=== PATIENT | male | born 1935 | race Caucasian/White ===

== ENCOUNTER 2025-02-06 09:32 | Outpatient (AMB) | payer MEDICARE, MEDICAID, SELFPAY ==
--- OUTSIDE RECORDS SUMMARY | 2025-02-03 10:20 | XMS_ITS | Encounter Summary ---
Author Organization [facility] Address [address] [address] Phone Care Team Providers Care Clinical Allergist Name Role Phone Milagros Valencia MD Primary Care Provider [phone] Reason for Visit * Reason Comments Chronic Kidney Disease Encounter Details Date Type Department Care Team (Latest Contact Info) Description 02/03/2025 10:20 AM EDT Office Visit [facility] [address] [address] Chance Saldana MD [address] [address] Stage 3b chronic kidney disease (HCC) (Primary Dx); Congestive heart failure, not otherwise specified (HCC); Atrial fibrillation, not otherwise specified (HCC); Anemia in chronic kidney disease; Diabetes mellitus, not otherwise specified (HCC); Simple renal cyst; Renal stone; Localized edema; Hypertension; Emphysema, not otherwise specified (HCC); Dyslipidemia; Congenital lobulation of kidney; Benign prostatic hyperplasia; 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 Social History Tobacco Use Types Packs/Day Years Used Date Smoking Tobacco: Former Cigarettes 0 04/17/1999 - 04/17/2008 Smokeless Tobacco: Never Alcohol Use Standard Drinks/Week Comments Never 0 (1 standard drink = 0.6 oz pur e alcohol) Sex and Gender Information Value Date Recorded Sex Assigned at Not on file Legal Sex Male 5:10 PM EST Gender Identity Not on file Sexual Orientation Not on file documented as of this encounter Last Filed Vital Signs Vital Sign Reading Time Taken Comments Blood Pressure 120/60 02/03/2025 10:25 AM EDT Pulse 92 02/03/2025 10:25 AM EDT Temperature - - Respiratory Rate - - Oxygen Saturation 95% 02/03/2025 10:25 AM EDT Inhaled Oxygen Concentration - - Weight 84.8 kg (187 lb) 02/03/2025 10:25 AM EDT Height - - Body Mass Index 27.62 04/18/2023 10:00 AM EST documented in this encounter Progress Notes * Chance Saldana MD - 02/03/2025 10:20 AM EDT [facility] Office Visit Patient Name: Rom Cote, Male Date of : 1935, 89 y.o. Date: 02/03/2025 History of Present Illness Rom Cote is a 89 y.o. male who is here for follow up of multiple medical problems including ckd, proteinuria and kidney stones. Interim history since the last encounter was reviewed. No acute complaints were voiced. Denied chest pain, flank pain, hematuria, hemoptysis or fevers. All other systems were reviewed and negative. Available lab results were reviewed and discussed. Medication list was reviewed and discussed. Any available out of office blood pressure readings were reviewed and discussed. CV and Renal risk was assessed and discussed. The following portions of the patient's chart were reviewed in this encounter and updated as appropriate: Allergies Meds Past Medical History Past Medical History: Diagnosis Date Chronic kidney disease stage 2 Chronic obstructive pulmonary disease (HCC) Diabetes mellitus (HCC) Enlarged prostate BPH Essential hypertension with WCE Nephrolithiasis Past Surgical History Past Surgical History: Procedure Laterality Date OTHER SURGICAL HISTORY Rectal fissure repair 2010 Family History Family History Problem Relation Age of Onset Cancer Sibling Cancer Mother Social History Social History Tobacco Use Smoking status: Former Current packs/day: 0.00 Types: Cigarettes Start date: 04/17/1999 Quit date: 04/17/2008 Years since quittin.8 Smokeless tobacco: Never Substance Use Topics Alcohol use: Never Medication List Current Outpatient Medications Medication Sig Dispense Refill albuterol (2.5 MG/3ML) 0.083% nebulizer solution USE 3 ML NEB EVERY 6 HOURS NEEDED FOR WHEEZING apixaban (ELIQUIS) 2.5 MG tablet Take 2.5 mg by mouth atorvastatin (LIPITOR) 10 MG tablet budesonide-formoterol (SYMBICORT) 160-4.5 MCG/ACT inhaler Inhale carvedilol (COREG) 12.5 MG tablet Take 6.25 mg by mouth in the morning and 6.25 mg in the evening. Take with meals. cyanocobalamin (VITAMIN B-12) 1000 MCG tablet Take 1,000 mcg by mouth 1 (one) time each day (Patient taking differently: Take 500 mcg by mouth 1 (one) time each day) diazePAM (VALIUM) 5 MG tablet TAKE 1/2 TAB BY MOUTH 3 TIMES A DAY NEEDED FOR ANXIETY Entresto 24-26 MG per tablet Take 1 tablet by mouth erythromycin (ROMYCIN) ophthalmic ointment APPLY 1/4 INCH RIBBON TO EACH EYE AT BEDTIME ferrous sulfate 325 (65 Fe) MG tablet Take 1 tablet by mouth 1 (one) time each day finasteride (PROSCAR) 5 MG tablet Take 1 tablet by mouth furosemide (LASIX) 20 MG tablet Take 20 mg by mouth glipiZIDE (GLUCOTROL) 5 MG tablet Take 1 tablet by mouth 1 (one) time each day in the morning loratadine (CLARITIN) 10 MG tablet Take 10 mg by mouth 1 (one) time each day omeprazole (PriLOSEC) [address] capsule Take 20 mg by mouth 1 (one) time each day sertraline (ZOLOFT) 25 MG tablet Take 25 mg by mouth 1 (one) time each day traMADol (ULTRAM) 50 MG tablet Take 50 mg by mouth Farxiga 10 MG tablet Take by mouth 1 (one) time each day (Patient not taking: Reported on 02/03/2025) No current facility-administered medications for this visit. Allergy List No Known Allergies Physical Exam BP 120/60 (BP Location: Left upper arm, Patient Position: Sitting, BP Cuff Size: Adult) Pulse 92 Wt 187 lb (84.8 kg) SpO2 95% BMI 27.62 kg/m?? Last 3 office BP readings: BP Readings from Last 3 Encounters: 02/03/25 120/60 07/29/24 120/74 01/24/24 126/76 General: Well developed well nourished in no acute distress Neuro: alert interactive without delirium Eyes: anicteric ENT: moist membranes, no stridor Cardiovascular: regular rate and rhythm, no rub Pulmonary: no distress or tachypnea Abdomen: soft and nondistended Genitourinary: no suprapubic tenderness or bladder distension to palpation Musculoskeletal: No bony tenderness or deviation Dermatologic: No visible rash on exposed skin Hematologic: no petechiae or ecchymoses on exposed skin Extremities: edema is none + cvi Labs Chemistry Lab Units 07/20/24 0000 12/28/23 1038 04/14/23 1053 CREATININE mg/dL 1.68* 1.65* 1.9* BUN mg/dL 34* 24 28* POTASSIUM 4.2 4.2 4.7 SODIUM 136* 136 138 CO2 mmol/L 19 24 27 CHLORIDE 102.0 99 100 ALBUMIN g/dL -- 4.2 4.4 EGFRNAFR 39 -- 35 EGFR mL/min/1.73 -- 40* -- WBC AUTO x10E3/uL -- 9.1 10.7 HEMATOCRIT % -- 36.9* 40.5 HEMOGLOBIN g/dL -- 11.4* 12.8* PLATELETS AUTO x10E3/uL -- 264 232 Bone Mineral Lab Units 07/20/24 0000 12/28/23 1038 04/14/23 1053 CALCIUM mg/dL 9.0 9.0 9.3 PHOSPHORUS mg/dL -- 3.1 3.5 ALK PHOS IU/L -- 102 113 PTH pg/mL -- 65 108* VITAMIN D NG/ML -- -- 25.0 VIT D 25 HYDROXY ng/mL -- 35.2 -- Urine Lab Units 12/28/23 1038 04/14/23 1053 PROT/CREAT RATIO UR mg/g creat 257* 0.25* No lab exists for component: IRON SATURATION No lab exists for component: CYCLOSPORITR Assessment & Plan 1. Stage 3b chronic kidney disease (HCC) 2. Congestive heart failure, not otherwise specified (HCC) 3. Atrial fibrillation, not otherwise specified (HCC) 4. Anemia in chronic kidney disease 5. Diabetes mellitus, not otherwise specified (HCC) 6. Simple renal cyst 7. Renal stone 8. Localized edema 9. Hypertension 10. Emphysema, not otherwise specified (HCC) 11. Dyslipidemia 12. Congenital lobulation of kidney 13. Benign prostatic hyperplasia 14. 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 CREATININE 1.6 MG/DL -1.9 MG/DL [id number] WITH CORTICAL ECHOGENIC CHANGES C/W CHRONIC MEDICAL DISEASE - BASELINE GFR 35-40 CC/MIN - STABLE [id number] Sebastian - 2021 - DETERIORATING GFR DOWN TO 25 CC/MIN -HEMODYNAMIC WITH LOW BP, HIGHER K AND WEAKNESS AFTER 10 LB WEIGHT LOSS. - IMPROVED BACK TO BASELINE AFTER MEDS REDUCED/RECONCILED. ASSOCIATED WITH HYPERKALEMIA WHICH ALSO RESOLVED PROTEINURIA. LIKELY DUE TO DIABETIC AND HYPERTENSIVE NEPHROPATHY. REMAINS <500MG/DAY IN [id number] RENAL CYSTS X 3-4 ON THE LEFT - STABLE OVER MANY YEARS. NO MASS ON PRIOR CT IMAGING AT [facility] OR OFFICE U/S 2021 NEPHROLITHIASIS - ASYMPTOMATIC X YEARS - FOCUS SEEMS TO BE LEFT LOWER POLE BUT MAY HAVE TINY RIGHT STONES TOO. MANY ARE LIKELY VASCULAR CALCIUM. 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 GOAL LESS THEN 130/80 GIVEN PROTEINURIA BUT 130-140 REASONABLE GIVEN HIS AGE AND COMORBIDITIES. - TENDS TO RUN LOW NOW WITH CHF AND CARDIAC PUMP ISSUES DEPRESSED EF CHF WITH UNDERLYING AFIB AND WITH IMPLANTED BI-V PACER - DR GONZALEZ - DR CALVILLO ADULT-ONSET DIABETES MELLITUS. SEEMS TO HAVE POOR INSIGHT. SEEMS TO HAVE DIABETIC RETINOPATHY AND POSSIBLY NEPHROPATHY COMPLICATIONS. OBESITY. NONDIPPER WITH HIGH RISK FOR SLEEP APNEA - TELLS ME HE HAS PASSED THREE TESTS IN THE PAST AND I'M DONE WITH THAT BENIGN PROSTATIC HYPERTROPHY WITH 1-2 TIME PER EVENING NOCTURIA. STABLE SXS AND NO HYDRO ON 2021 IMAGING VIT D DEFICIENCY - IMPROVING WITH SUPPLEMENTATION NONADHERENCE VS CONFUSION? - MISSED FOLLOW UP FOR 2 YEARS. DISHEVELED AND CONTRADICTORY MED LISTS. NO HOME BP RECORDS OR DATA PRESENTED. NO LABS FOR ME IN 2 YEARS. TELLS ME THERE IS A MED THAT WAS DENIED AND HE NEEDS A REFILL BUT COULD NOT TELL ME THE NAME. 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 -cysts have been cleared based on prior imaging and > 6 year stability. -random urine calcium and uric acid was well controlled predicting no further stones. -will try to regress proteinuria to zero if possible but this needs to be balanced with age, risk of falls, mental state, bp, meds etc and < 500 mg/day seems reasonable and stable. -he needs periodic 24 hr bpm and/or home bp monitoring and we should use caution with office readings as he appears to have a white coat effect -limit nsaids -geriatric approach with multispecialty care -goal is to slow ckd progression and prevent CV event as long as feasible. -he expressed that he would not want dialysis should he become uremic. -daughter's involvement is strongly recommended and is significantly helping to keep him balanced since 2022, including again today -stable at this time -watch for weight loss as he has been tapering off some meds due to weight loss and lower bp with recent admit for orthostasis -rtc 6 mos with labs so long as weight and clinically stable Orders Placed This Encounter Comprehensive Metabolic Panel Uric Acid Magnesium Phosphorus PTH, Intact Vitamin D 25 Hydroxy CBC and Differential Protein, Total, Random Urine w/Creatinine (Protein/Creat Ratio) Ferritin Iron Panel (Fe, TIBC, TSAT) Return in about 6 months (around 08/04/2025) for OV with labs 1-2 weeks prior to visit. Chance Saldana MD documented in this encounter Plan of Treatment Upcoming Encounters Date Type Department Care Team (Late st Contact Info) Description 08/04/2025 9:40 AM EDT Office Visit [facility].. [address] [address] Chance Saldana MD [address] [address] Scheduled Orders Name Type Priority Associated Diagnoses Orde r Schedule Comprehensive Metabolic Panel Lab Routine Stage 3b chronic kidney disease (HCC) Congestive heart failure, not otherwise specified (HCC) Atrial fibrillation, not otherwise specified (HCC) Anemia in chronic kidney disease Diabetes mellitus, not otherwise specified (HCC) Simple renal cyst Renal stone Localized edema Hypertension Emphysema, not otherwise specified (HCC) Dyslipidemia Congenital lobulation of kidney Benign prostatic hyperplasia 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 Expected: 08/04/2025, Expires: 03/06/2026 Uric Acid Lab Routine Stage 3b chronic kidney disease (HCC) Congestive heart failure, not otherwise specified (HCC) Atrial fibrillation, not otherwise specified (HCC) Anemia in chronic kidney disease Diabetes mellitus, not otherwise specified (HCC) Simple renal cyst Renal stone Localized edema Hypertension Emphysema, not otherwise specified (HCC) Dyslipidemia Congenital lobulation of kidney Benign prostatic hyperplasia 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 Expected: 08/04/2025, Expires: 03/06/2026 Magnesium Lab Routine Stage 3b chronic kidney disease (HCC) Congestive heart failure, not otherwise specified (HCC) Atrial fibrillation, not otherwise specified (HCC) Anemia in chronic kidney disease Diabetes mellitus, not otherwise specified (HCC) Simple renal cyst Renal stone Localized edema Hypertension Emphysema, not otherwise specified (HCC) Dyslipidemia Congenital lobulation of kidney Benign prostatic hyperplasia 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 Expected: 08/04/2025, Expires: 03/06/2026 Phosphorus Lab Routine Stage 3b chronic kidney disease (HCC) Congestive heart failure, not otherwise specified (HCC) Atrial fibrillation, not otherwise specified (HCC) Anemia in chronic kidney disease Diabetes mellitus, not otherwise specified (HCC) Simple renal cyst Renal stone Localized edema Hypertension Emphysema, not otherwise specified (HCC) Dyslipidemia Congenital lobulation of kidney Benign prostatic hyperplasia 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 Expected: 08/04/2025, Expires: 03/06/2026 PTH, Intact Lab Routine Stage 3b chronic kidney disease (HCC) Congestive heart failure, not otherwise specified (HCC) Atrial fibrillation, not otherwise specified (HCC) Anemia in chronic kidney disease Diabetes mellitus, not otherwise specified (HCC) Simple renal cyst Renal stone Localized edema Hypertension Emphysema, not otherwise specified (HCC) Dyslipidemia Congenital lobulation of kidney Benign prostatic hyperplasia 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 Expected: 08/04/2025, Expires: 03/06/2026 Vitamin D 25 Hydroxy Lab Routine Stage 3b chronic kidney disease (HCC) Congestive heart failure, not otherwise specified (HCC) Atrial fibrillation, not otherwise specified (HCC) Anemia in chronic kidney disease Diabetes mellitus, not otherwise specified (HCC) Simple renal cyst Renal stone Localized edema Hypertension Emphysema, not otherwise specified (HCC) Dyslipidemia Congenital lobulation of kidney Benign prostatic hyperplasia 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 Expected: 08/04/2025, Expires: 03/06/2026 CBC and Differential Lab Routine Stage 3b chronic kidney disease (HCC) Congestive heart failure, not otherwise specified (HCC) Atrial fibrillation, not otherwise specified (HCC) Anemia in chronic kidney disease Diabetes mellitus, not otherwise specified (HCC) Simple renal cyst Renal stone Localized edema Hypertension Emphysema, not otherwise specified (HCC) Dyslipidemia Congenital lobulation of kidney Benign prostatic hyperplasia 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 Expected: 08/04/2025, Expires: 03/06/2026 Protein, Total, Random Urine w/Creatinine (Protein/Creat Ratio) Lab Routine Stage 3b chronic kidney disease (HCC) Congestive heart failure, not otherwise specified (HCC) Atrial fibrillation, not otherwise specified (HCC) Anemia in chronic kidney disease Diabetes mellitus, not otherwise specified (HCC) Simple renal cyst Renal stone Localized edema Hypertension Emphysema, not otherwise specified (HCC) Dyslipidemia Congenital lobulation of kidney Benign prostatic hyperplasia 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 Expected: 08/04/2025, Expires: 03/06/2026 Ferritin Lab Routine Stage 3b chronic kidney disease (HCC) Congestive heart failure, not otherwise specified (HCC) Atrial fibrillation, not otherwise specified (HCC) Anemia in chronic kidney disease Diabetes mellitus, not otherwise specified (HCC) Simple renal cyst Renal stone Localized edema Hypertension Emphysema, not otherwise specified (HCC) Dyslipidemia Congenital lobulation of kidney Benign prostatic hyperplasia 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 Expected: 08/04/2025, Expires: 03/06/2026 Iron Panel (Fe, TIBC, TSAT) Lab Routine Stage 3b chronic kidney disease (HCC) Congestive heart failure, not otherwise specified (HCC) Atrial fibrillation, not otherwise specified (HCC) Anemia in chronic kidney disease Diabetes mellitus, not otherwise specified (HCC) Simple renal cyst Renal stone Localized edema Hypertension Emphysema, not otherwise specified (HCC) Dyslipidemia Congenital lobulation of kidney Benign prostatic hyperplasia 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 Expected: 08/04/2025, Expires: 03/06/2026 documented as of this encounter Visit Diagnoses Diagnosis Stage 3b chronic kidney disease (HCC)- Primary Congestive heart failure, not otherwise specified (HCC) Atrial fibrillation, not otherwise specified (HCC) Anemia in chronic kidney disease Diabetes mellitus, not otherwise specified (HCC) Simple renal cyst Renal stone Localized edema Hypertension Emphysema, not otherwise specified (HCC) Dyslipidemia Congenital lobulation of kidney Benign prostatic hyperplasia 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
--- NOTE | 2025-02-06 09:17 | A.OFFPC_ITS ---
Vital Signs 02/06/25 09:39 Height 5 ft 9 in Weight 187 lb 6 oz BMI 27.7 BP 102/60 Blood Pressure Location Lt brachial Position Sitting Respiration 16 Pulse 71 Pulse Source Pulse Oximeter Temp 97.5 F Temp Source Oral Pulse Oximetry (%) 98 Oxygen Delivery Method Room Air Intake Visit Reasons: Re-establish care [employer] Practitioner Required: No Accompanied by: Daughter Allergies No Known Allergies Allergy (Verified 02/06/25 09:42) Medication List - Last Reconciled 02/06/25 by Milagros Valencia MD albuterol sulfate 90 mcg/actuation 2 puffs inhalation Q4H PRN apixaban (Eliquis) 2.5 mg PO BID atorvastatin 10 mg PO DAILY blood sugar diagnostic (FreeStyle Lite Strips) As directed carvedilol 6.25 mg PO BID cyanocobalamin (vitamin B-12) 500 mcg PO DAILY dapagliflozin propanediol (Farxiga) 10 mg PO DAILY erythromycin ophthalmic (eye) BEDTIME finasteride 5 mg PO DAILY fluticasone furoate-vilanterol 200-25 mcg/dose (Breo Ellipta) 1 ea inhalation DAILY furosemide 20 mg PO BID PRN glipizide 5 mg PO BID lancets (FreeStyle Lancets) As directed omeprazole 20 mg PO DAILY sacubitril-valsartan 24-26 mg 1 tab PO BID sertraline 50 mg PO DAILY Tobacco use date assessed: 02/06/25 Fall risk assessment: No Falls in past year Last assessed Fall Risk: 02/06/25 Dental Screening Dental Screen Date: 02/06/25 Did you have a dental visit in the last 12 months?: No Did you have a dental problem in the last 6 months where you did not have access to dental care?: No HPI HPI Comments History of Present Illness Details History of Present Illness History The patient is an 89-year-old male presenting with follow-up for diabetes, hypertension, and osteoarthritis pain. Type 2 Diabetes Mellitus: Experienced good control, recent hyperglycemia post donut consumption,. Essential Hypertension: Erratic BP readings at home, stable during recent clinical checks, concerns about device accuracy. Osteoarthritis: Chronic knee pain, managed with tramadol. Chronic Obstructive Pulmonary Disease (COPD): Stable with routine inhaler use, no recent exacerbations. 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 Saldana Anxiety: Managed with Sertraline Medical History: - Type 2 Diabetes Mellitus - Essential Hypertension - Osteoarthritis - Chronic Obstructive Pulmonary Disease (COPD) - Anxiety - CHF - s/p ICD placement Social History: - Engages in dietary control; drinks nickie er regularly to manage blood sugar. - Has cut down on sugar and lost signifi cant weight in the past by controlling diet. - Attends AA meetings, indicating some l evel of social and functional activity. - Reports nutritional intake including h [place] a banana and a Glucerna drink in the morning, followed by a sandwich for lunch. - Also emphasized focus on maintaining h ydration. Review of Systems - Cardiovascular: Denies dizziness durin g hypotensive episodes. - Endocrine: Reports recent hyperglycemi a, - Respiratory: Denies acute exacerbation s of COPD, reports regular inhaler use. - Musculoskeletal: Reports chronic knee osteoarthritis pain. - Psychiatric: per hpi Physical Exam - Respiratory- Lungs clear with breath s ounds noted. -Cardiovascular- Heart sounds with a sof t murmur, normal S1, S2 - Abdominal- Abdomen soft , non tender, non distended, +BS - Extremities: no edema - Derm: small erythematous macule below umbilicus, no hyperpigmentation noted(has seen [facility] in the past) Assessment and Plan 1. Type 2 Diabetes Mellitus - Monitor A1c levels; reinforce dietary management. 2. Essential Hypertension - Check home BP machine; maintain curren t treatment. 3. Osteoarthritis - Continue tramadol; monitor for side ef fects. Contract signed, tox screen obtained. Discussed that med would be adjusted as needed depending on labs, take tramadol TID for now. 4. Chronic Obstructive Pulmonary Disease (COPD) - Ongoing inhaler use; monitor symptoms. 5. Anxiety - Continue Sertraline; monitor for side effects. 6. Misc: monitor skin lesion, consider d erm eval if change in features Discussion Notes During our conversation, we discussed the importance of controlling blood sugar through dietary adjustments and the impact of regular hydration. I emphasized consistent blood pressure monitoring and suggested investigating the accuracy of the home BP machine. We agreed to continue tramadol for knee osteoarthritis and reinforced regular use of the prescribed inhaler for COPD management. We reviewed the risks and benefits of each medication and intervention and confirmed the follow-up appointments with the cardiology and nephrology teams in March. The patient was given instructions on when to seek medical attention for any concerning symptoms and was encouraged to continue using our healthcare portal for communication. Patient Instructions - Drink at least three 16-ounce bottles of water daily. - Monitor your blood sugar and blood pre ssure regularly. - Avoid excessive or frequent checking o f blood pressure. - Continue tramadol three times daily wi th meals. - Use Breo inhaler for COPD as directed. - Maintain a healthy diet and limit suga r intake. - Contact us if you notice any severe si de effects or if your symptoms worsen. - Follow up with cardiology and nephrolo gy in March. [facility] Medical History (Updated 02/06/25 @ 14:53 by Milagros Valencia MD) Therapeutic drug monitoring Osteoarthritis of knees, bilateral Anemia, unspecified CKD stage 4 due to type 2 diabetes mellitus COPD (chronic obstructive pulmonary disease) CHF (congestive heart failure) Diabetes mellitus type 2 in obese Hypertension Surgical History (Updated 02/06/25 @ 14:54 by Milagros Valencia MD) History of implantable cardioverter-defibrillator (ICD) placement Social History Housing: Apartment Patient Tobacco Use Status: Former Tobacco user Years Smoked: 50 years, quit about 2001 e-Cigarette/Vaping Use: Never Used service: No Current occupational status: retired Questionnaire AUDIT C Alcohol Use Questionnaire (AUDIT-C) 1. How often do you have a drink containing alcohol?: Never 3. How often do you have six or more drinks on one occasion?: Never Total Score: 0 Physical exam (Primary Care) Vital Signs: Last Vital Signs Temp 97.5 F 02/06/25 09:39 Pulse 71 02/06/25 09:39 Resp 16 02/06/25 09:39 BP 102/60 02/06/25 09:39 Pulse Ox 98 02/06/25 09:39 Oxygen Delivery Method Room Air 02/06/25 09:39 BMI result Body Mass Index 27.7 Tobacco/Smoking Status: Tobacco use Status Tobacco use date assessed 02/06/25 02/06/25 09:18 Patient Tobacco Use Status Former Tobacco user 02/06/25 09:52 e-Cigarette/Vaping Use Never Used 02/06/25 09:52 Coding Level of Care Code Est Pt Level 4 (97631) Complex EM visit Add On G2211 Diagnoses Primary hypertension I10 Hypertension type: primary hypertension Diabetes mellitus type 2 in obese E11.69; E66.9 CKD stage 4 due to type 2 diabetes mellitus E11.22; N18.4 Anemia, unspecified type D64.9 Anemia type: unspecified type Primary osteoarthritis of both knees M17.0 Osteoarthritis type: primary Chronic obstructive pulmonary disease, unspecified COPD type J44.9 COPD type: unspecified COPD Congestive heart failure, unspecified HF chronicity, unspecified heart failure type I50.9 Heart failure chronicity: unspecified Heart failure type: unspecified Therapeutic drug monitoring Z51.81 Assessment & Plan Assessment & Plan (1) Hypertension: Code(s): I10 - Essential (primary) hypertension Category: Medical Qualifiers: Hypertension type: primary hypertension Qualified Code(s): I10 - Essential (primary) hypertension (2) Diabetes mellitus type 2 in obese: Code(s): E11.69 - Type 2 diabetes mellitus with other specified complication; E66.9 - Obesity, unspecified Category: Medical (3) CKD stage 4 due to type 2 diabetes mellitus: Code(s): E11.22 - Type 2 diabetes mellitus with diabetic chronic kidney disease; N18.4 - Chronic kidney disease, stage 4 (severe) Category: Medical (4) Anemia, unspecified: Code(s): D64.9 - Anemia, unspecified Category: Medical Qualifiers: Anemia type: unspecified type Qualified Code(s): D64.9 - Anemia, unspecified (5) Osteoarthritis of knees, bilateral: Code(s): M17.0 - Bilateral primary osteoarthritis of knee Category: Medical Qualifiers: Osteoarthritis type: primary Qualified Code(s): M17.0 - Bilateral primary osteoarthritis of knee (6) COPD (chronic obstructive pulmonary disease): Code(s): J44.9 - Chronic obstructive pulmonary disease, unspecified Category: Medical Qualifiers: COPD type: unspecified COPD Qualified Code(s): J44.9 - Chronic obstructive pulmonary disease, unspecified (7) CHF (congestive heart failure): Code(s): I50.9 - Heart failure, unspecified Category: Medical Qualifiers: Heart failure chronicity: unspecified Heart failure type: unspecified Qualified Code(s): I50.9 - Heart failure, unspecified (8) Therapeutic drug monitoring: Code(s): Z51.81 - Encounter for therapeutic drug level monitoring Category: Medical Plan - Continue dietary management and hydrate adequately. - Verify home BP device accuracy; continue hypertension control. - Use tramadol with each meal; observe for adverse effects. - Maintain regular inhaler use for COPD. - Continue Sertraline; monitor any side effects. - Await lab results for A1c. - Follow up with specialists. Orders: Orders Hemoglobin A1c Today E11.69 - Type 2 diabetes mellitus with other specified complication, E66.9 - Obesity, unspecified Complete Blood Count Auto Diff Today D64.9 - Anemia, unspecified Comprehensive Met. Panel Today E11.69 - Type 2 diabetes mellitus with other specified complication, E66.9 - Obesity, unspecified Magnesium Today E11.22 - Type 2 diabetes mellitus with diabetic chronic kidney disease, N18.4 - Chronic kidney disease, stage 4 (severe) Microalbumin, Random (w Creat) Today I10 - Essential (primary) hypertension Opiate Screen Urine Today Z51.81 - Encounter for therapeutic drug level monitoring Benzodiazepines Screen Urine Today Z51.81 - Encounter for therapeutic drug level monitoring Cocaine Screen Urine Today Z51.81 - Encounter for therapeutic drug level monitoring Alcohol, Ethyl Urine Screen Today Z51.81 - Encounter for therapeutic drug level monitoring Medications: New 2 tramadol 50 mg PO Q8H PRN 90 tabs 2RF pain M17.0 - Bilateral primary osteoarthritis of knee
[2025-02-06 09:39] VITALS: BP 102/60; PULSE 71; RESP 16; TEMP 36.4; O2SAT 98; BMI 27.7
--- OUTSIDE RECORDS SUMMARY | 2025-02-06 10:45 | XMS_ITS | Encounter Summary ---
Author Organization [facility] Address [address] [place] [address] Phone Care Team Providers Care Thermostat Machine Tender Name Role Phone Milagros Valencia MD Primary Care Provider [phone]- [phone] Reason for Visit * Reason Comments Med Refill Encounter Details Date Type Department Care Team (Late Contact Info) Description 05/31/2021 Refill [facility] [address] [place] [address] Chance Saldana MD [address] [address] Social History Tobacco Use Types Packs/Day Years Used Date Smoking Tobacco: Former Cigarettes 0 04/17/1999 - 04/17/2008 Sex and Gender Information Value Date Recorded Sex Assigned at Not on file Legal Sex Male 5:10 PM EST Gender Identity Not on file Sexual Orientation Not on file documented as of this encounter Miscellaneous Notes * Telephone Encounter - Chance Saldana MD - 05/31/2021 5:42 AM EST Not seen in in office in > 2 years. Needs follow up if I am going to refill meds documented in this encounter Plan of Treatment Upcoming Encounters Date Type Department Care Team (Late Contact Info) Description 08/04/2025 9:40 AM EDT Office Visit [facility] [address] [facility] [address] [place] [address] Chance Saldana MD [address] [facility] [address] [place] [address] documented as of this encounter Visit Diagnoses Not on filedocumented in this encounter Care Teams Thermostat Machine Tender Relationship Specialty Start Date End Date Milagros Valencia MD [address] [place], [place] PCP - General 04/27/20 documented as of this encounter
--- OUTSIDE RECORDS SUMMARY | 2025-02-06 10:45 | XMS_ITS | Clinical Summary ---
Author Organization [facility] Address [address] [facility] [address] [place] [address] Phone Care Team Providers Care Retail Visual Merchandiser Name Role Phone Milagros Valencia MD Primary Care Provider [phone]- [phone] Allergies No known active allergies Medications albuterol (2.5 MG/3ML) 0.083% nebulizer solution USE 3 ML NEB EVERY 6 HOURS NEEDED FOR WHEEZING 04/25/2020 Active atorvastatin (LIPITOR) 10 MG tablet 05/24/2020 Active diazePAM (VALIUM) 5 MG tablet TAKE 1/2 TAB BY MOUTH 3 TIMES A DAY NEEDED FOR ANXIETY 05/19/2020 Active erythromycin (ROMYCIN) ophthalmic ointment APPLY 1/4 INCH RIBBON TO EACH EYE AT BEDTIME 03/31/2020 Active ferrous sulfate 325 (65 Fe) MG tablet Take 1 tablet by mouth 1 (one) time each day Active omeprazole (PriLOSEC) [address] capsule Take 20 mg by mouth 1 (one) time each day 04/29/2020 Active budesonide-form oterol (SYMBICORT) 160-4.5 MCG/ACT inhaler Inhale 04/01/2021 Active Entresto 24-26 MG per tablet Take 1 tablet by mouth 04/03/2021 Active cyanocobalamin (VITAMIN B-12) 1000 MCG tablet Take 1,000 mcg by mouth 1 (one) time each day 05/08/2021 Active carvedilol (COREG) 12.5 MG tablet Take 6.25 mg by mouth in the morning and 6.25 mg in the evening. Take with meals. 06/18/2021 Active traMADol (ULTRAM) 50 MG tablet Take 50 mg by mouth 05/18/2021 Active apixaban (ELIQUIS) 2.5 MG tablet Take 2.5 mg by mouth 05/14/2020 Active finasteride (PROSCAR) 5 MG tablet Take 1 tablet by mouth 08/07/2021 Active loratadine (CLARITIN) 10 MG tablet Take 10 mg by mouth 1 (one) time each day Active sertraline (ZOLOFT) 25 MG tablet Take 25 mg by mouth 1 (one) time each day Active glipiZIDE (GLUCOTROL) 5 MG tablet Take 1 tablet by mouth 1 (one) time each day in the morning 02/28/2023 Active Farxiga 10 MG tablet Take by mouth 1 (one) time each day 01/21/2025 Active furosemide (LASIX) 20 MG tablet Take 20 mg by mouth 08/27/2024 Active Active Problems Problem Noted Date Diagnosed Date 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 04/17/2023 04/17/2023 Hypertension 10/09/2022 Atrial fibrillation 06/21/2021 Benign prostatic hyperplasia 06/21/2021 Congestive heart failure 06/21/2021 Left bundle-branch block 06/21/2021 Diabetes mellitus, not otherwise specified 06/21 Emphysema 06/21/2021 Dyslipidemia 06/21/2021 Obesity 06/21/2021 Anemia in chronic kidney disease 05/27/2020 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 Localized edema 05/27/2020 Renal stone 05/27/2020 Simple renal cyst 05/27/2020 Resolved Problems Problem Noted Date Diagnosed Date Resolved Date Essential hypertension 05/27/202001/31 Encounters Date Type Department Care Team Description 02/03/2025 10:20 AM EDT Office Visit [facility] [address] [address] Chance Saldana MD Stage 3b chronic kidney disease (HCC) (Primary Dx); Congestive heart failure, not otherwise specified (HCC); Atrial fibrillation, not otherwise specified (HCC); Anemia in chronic kidney disease; Diabetes mellitus, not otherwise specified (HCC); Simple renal cyst; Renal stone; Localized edema; Hypertension; Emphysema, not otherwise specified (HCC); Dyslipidemia; Congenital lobulation of kidney; Benign prostatic hyperplasia; 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 01/28/2025 Orders Only [facility] [address] [id number] Chance Saldana MD Stage 3b chronic kidney disease (HCC); Renal stone; Congenital lobulation of kidney; Benign prostatic hyperplasia; Anemia in chronic kidney disease; Atrial fibrillation, not otherwise specified (HCC); Congestive heart failure, not otherwise specified (HCC); 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; Type 2 diabetes mellitus without complication (HCC); Dyslipidemia; Essential hypertension; Hypertension; Localized edema; Obesity, not otherwise specified from Last 3 Months Immunizations Immunization Administration Dates Next Due Influenza Split High Dose Pr eservative Free IM 01/15/2019,01/29/2018,02/18/2014 Influenza Vaccine, Quadrivalent, Adjuvanted 12/16 Pfizer SARS-COV-2 05/23/2020,05/02/2020 Pneumococcal Polysaccharide 09/22/2013 Family History Medical History Relation Comments Cancer Mother Cancer Sibling Relation Status Comments Father Mother Sibling Social History Tobacco Use Types Packs/Day Years [...] on file Sexual Orientation Not on file Last Filed Vital Signs Vital Sign Reading Time Taken Comments Blood Pressure 120/60 02/03/2025 10:25 AM EDT Pulse 92 02/03/2025 10:25 AM EDT Temperature - - Respiratory Rate - - Oxygen Saturation 95% 02/03/2025 10:25 AM EDT Inhaled Oxygen Concentration - - Weight 84.8 kg (187 lb) 02/03/2025 10:25 AM EDT Height 175.3 cm (5' 9 ) 04/18/2023 10:00 AM EST Body Mass Index 27.62 04/18/2023 10:00 AM EST Plan of Treatment Upcoming Encounters Date Type Department Care Team (Late st Contact Info) Description 08/04/2025 9:40 AM EDT Office Visit [facility] [address] [address] Chance Saldana MD [address] [id number] Health Maintenance Due Date Last Done Comments Diabetes: Hemoglobin A1C 06/01/2021 Diabetes: Ophthalmology Exam 06/01/2021 Diabetes: Pedal Pulse Checked 06/01/2021 Diabetes: Sensory Foot Exam 06/01/2021 Diabetes: Visual Foot Exam 06/01/2021 Influenza Vaccine (#1) 2024 0, 01/15/2019, 01/29/2018, Additional history exists Pneumococcal Vaccine: 50+ Years Completed 08/14/2015, 09/22/2013, 05/06/2011 Pneumococcal Vaccine: Peds (0 to 5 Years) and At-Risk Patients (6 to 49 Years) Discontinued 08/14/2015, 09/22/2013, 05/06/2011 Hepatitis B Vaccine Aged Out No longe r eligible based on patient's age to complete this topic Insurance Medicare Medicaid [place] Medicare Medicaid [place] Care Teams Retail Visual Merchandiser Relationship Specialty Start Date End Date Milagros Valencia MD [address] [place], [place] PCP - General 04/27/20
--- OUTSIDE RECORDS SUMMARY | 2025-02-06 10:46 | XMS_ITS | Clinical Summary ---
Author Organization [address] [place] [address] [place] [phone] Phone Care Team Providers Care Pilot Boat Operator Name Role Phone Milagros Valencia MD Primary Care Provider [phone]- [phone] Allergies No known active allergies Medications albuterol 2.5 mg /3 mL (0.083 %) nebulizer solution Take 1 Vial by nebulization every 6 hours as needed. Active atorvastatin (LIPITOR) 10 mg tablet Take 1 Tab by mouth daily. Active blood-glucose meter (FREESTYLE LITE METER [facility]) Active blood-glucose meter kit by Does not apply route. Active budesonide/for moterol fumarate (SYMBICORT INHL) Inhale 2 Puffs into the lungs 2 times daily. Active CYANOCOBALAMIN , VITAMIN B-12, ORAL Take 1 Tablet by mouth daily. Active diazePAM (VALIUM) 5 mg tablet 1 (one) time each day. Active empagliflozin (Jardiance) 25 mg tablet Take 1 Tablet by mouth daily. Active ferrous sulfate 325 mg (65 mg elemental iron) tablet Take 325 mg by mouth daily. Active finasteride (PROSCAR) 5 mg tablet Take 5 mg by mouth daily. Active magnesium oxide (MAG-OX) 400 mg magnesium tablet Take by mouth daily. Active omeprazole (PriLOSEC) [address] capsule Take 20 mg by mouth daily. Active sertraline (ZOLOFT) 25 mg tablet Take 1 Tablet by mouth daily. Active SITagliptin phosphate (Januvia) 50 mg tablet Take 1 Tablet by mouth daily. Active traMADoL (ULTRAM) 50 mg tablet Take 50 mg by mouth every 8 hours as needed. Active apixaban (Eliquis) 2.5 mg tablet Take 1 tablet (2.5 mg total) by mouth 2 (two) times a day. 180 tablet 1 06/25/19 25 Active carvediloL (COREG) 6.25 mg tablet Take 1 tablet (6.25 mg total) by mouth 2 (two) times a day with meals. 180 tablet 1 08/28/19 25 Active furosemide (LASIX) 20 mg tablet Take 1 tablet (20 mg total) by mouth if needed (For leg edema). 30 tablet 08/28/19 25 Active Entresto 24-26 mg per tablet TAKE 1 TABLET BY MOUTH TWICE A DAY 180 tablet 1 01/11/20 25 Active sacubitriL-lucas sartan (Entresto) 24-26 mg per tablet TAKE 1 TABLET BY MOUTH TWICE A DAY 180 tablet 1 07/30/19 25 025 Discontinued Active Problems Problem Noted Date Diagnosed Date Diabetes mellitus ([facility] V24, [facility] V28) Hyperlipidemia 01/31/2024 Overview (01/31/2024): Last Assessment & Plan: Last lipid panel 10/24/22 with LDL at goal on statin; continue current medical therapies. Assessment & Plan (08/27/2024 10:13 AM EDT): Patient has continued on medical therapy with statin. Goal LDL cholesterol is less than 100. We will update a lipid panel. Hypertension 01/31/2024 Overview (01/31/2024): Last Assessment & Plan: Blood pressure is under excellent control with a reading today of 120/80. No changes to his medical therapies at this time. Assessment & Plan (08/27/2024 10:13 AM EDT): Blood pressure is under excellent control with a reading today of 130/70. He was hospitalized recently with hypotension and his carvedilol dose was reduced. He denies any further incidence of lightheadedness or dizziness. 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 He has a biventricular ICD in place. He is feeling well and denies any clinical symptoms of worsening heart failure. He continues on appropriate GDMT. I will make no changes to his medical therapies and he will continue on carvedilol, Entresto, Jardiance and furosemide as prescribed. Patient advised to seek emergency medical attention by calling 911 if they were to develop severe dyspnea, chest pain that did not resolve with rest or nitroglycerin, or if they were to faint. I've asked the patient to call if they develop worsening symptoms of heart failure such as increased shortness of breath, new or worsening cough, increased swelling in the legs or ankles, or weight gain of more than 2 pounds in one day or 4 pounds in one week. 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 He has a biventricular ICD in place. He is feeling well and denies any clinical symptoms of worsening heart failure. He continues on appropriate GDMT. I will make no changes to his medical therapies and he will continue on carvedilol, Entresto, Jardiance and furosemide as prescribed. Patient advised to seek emergency medical attention by calling 911 if they were to develop severe dyspnea, chest pain that did not resolve with rest or nitroglycerin, or if they were to faint. I've asked the patient to call if they develop worsening symptoms of heart failure such as increased shortness of breath, new or worsening cough, increased swelling in the legs or ankles, or weight gain of more than 2 pounds in one day or 4 pounds in one week. LBBB (left bundle branch block) 01/31/2024 Overview (01/31/2024): Last Assessment & Plan: Patient has a chronic left bundle branch block with a biventricular ICD in place. We will continue to monitor his device remotely and routine visits to the device clinic. Assessment & Plan (08/27/2024 10:13 AM EDT): Patient has history of a chronic left bundle branch block with a biventricular ICD in place. Patient continues with remote monitoring and routine visits to our device clinic. Dyspnea 03/23/2021 Atrial fibrillation (CMS/HCC V24, CMS/HCC V28) 0 06/04/2020 Overview (01/31/2024): Last Assessment & Plan: The patient continues on Eliquis for anticoagulation; he is tolerating this well and reports compliance. His last creatinine 10/24/22 was 2.0 with an eGFR of 32. He is followed closely by nephrology, and given his decreased renal function he is appropriately dosed on Eliquis 2.5 mg twice daily. Assessment & Plan (08/27/2024 10:13 AM EDT): The patient continues on Eliquis for anticoagulation; he is tolerating this well and reports compliance. Patient is appropriately on low-dose Eliquis given his advanced age and renal function. Chronic kidney disease 06/04/2020 Overview (01/31/2024): Last Assessment & Plan: As above. Obesity 06/04/2020 Encounters Date Type Department Care Team Description 01/21/2025 11:20 PM EDT Ancillary Procedure [facility]iology [facility] [address] [facility] [address] [place] [address] 12/26/2024 2:15 AM EDT Ancillary Procedure [facility] [address] [place] [address] 12/01/2024 7:55 PM EDT Ancillary Procedure [facility] Card[facility] [address] [place] [address] from Last 3 Months Immunizations Immunization Administration Dates Next Due Pfizer SARS-CoV-2 COVID-19, mRNA, LNP-S, preservative free 05/23/2020,05/02/2020,05/02/2019 Surgical History Surgery Date Site/Laterality Comments COLONOSCOPY PROCEDURE: HISTORICAL COLONOSCOPY CATARACT EXTRACTION PROCEDURE: HISTORICAL CATARACT REMOVAL OTHER SURGICAL HISTORY PROCEDURE: HISTORY OTHER; COMMENT: Anoplasty Medical History Medical History Date Comments Anal fissure DX:Anal fissure Anxiety DX:Anxiety Atrial fibrillation ([facility] V24, [facility] V28) DX:Atrial fibrillation (HCC) BPH (benign prostatic hyperplasia) DX:BPH (benign prostatic hyperplasia) Congestive heart failure (CH F) ([facility] V24, [facility] V28) DX:Congestive heart failure (CHF) (HCC) Diabetes mellitus ([facility] V 24, [facility] V28) DX:Diabetes mellitus (HCC) Emphysema lung ([facility] V24, [facility] V28) DX:Emphysema lung (HCC) Hyperlipidemia DX:Hyperlipidemi a Hypertension DX:Hypertension LBBB (left bundle branch block) DX:LBBB (left bundle branch block) Nephrolithiasis DX:Nephrolithias is Obesity DX:Obesity Osteoarthritis DX:Osteoarthriti s Renal cyst DX:Renal cyst CKD (chronic kidney disease) COPD exacerbation ([facility] V 24, [facility] V28) Family History Medical History Relation Name Comments Other: Lupus Daughter Other: Diabetes Mellitus Type II Other Relation Name Status Comments Daughter Other Social History Tobacco Use Types Packs/Day Years Used Date Smoking Tobacco: Former Cigarettes Q uit: 04/17/2008 Smokeless Tobacco: Never Alcohol Use Standard Drinks/Week Comments No 0 (1 standard drink = 0.6 oz pur e alcohol) Sex and Gender Information Value Date Recorded Sex Assigned at Not on file Legal Sex Male 12:12 AM EST Gender Identity Not on file Sexual Orientation Not on file Obstetrics History Last Filed Vital Signs Vital Sign Reading Time Taken Comments Blood Pressure 130/70 08/27/2024 9:18 AM EDT Pulse 80 08/27/2024 9:18 AM EDT Temperature - - Respiratory Rate - - Oxygen Saturation 94% 08/27/2024 9:18 AM EDT Inhaled Oxygen Concentration - - Weight 86.2 kg (190 lb) 08/27/2024 9:18 AM EDT Height 172.7 cm (5' 8 ) 08/27/2024 9:18 AM EDT Body Mass Index 28.89 08/27/2024 9:18 AM EDT Plan of Treatment Upcoming Encounters Date Type Department Care Team (Late st Contact Info) Description 03/18/2025 9:30 AM EST Ancillary Procedure [facility] [address] [facility] [address] [place] [phone] 04/24/2025 11:20 AM EST Office Visit [facility] [address] [place] [phone] Navin Melgoza MD [address] [place] [address] [address] [place] [phone] Health Maintenance Due Date Last Done Comments Diabetes: Annual Foot Exam 1945 Diabetes: Annual Retina Eye Exam 1945 Falls Risk Assessment 03/20/2022 Medicare Annual Wellness Visit 03/20/2022 Social Influencers of Health Screening 03/20/2022 Diabetes: Blood Sugar Control Test (HGBA1C) 03/30/2022 Depression Screening 04/17/2024 COVID-19 Vaccine (9 - Pfizer risk season) 2024 01/18/2024, 02/20/2023, 01/31/2022, Additional history exists DTaP,Tdap,and Td Vaccines (2 - Td or Tdap) 02/06/2025 02/06/2015 Hypertension/CHF/CAD Annual BMP Blood Test 08/27/2025 08/27/2024, 12/28/2023 Cholesterol Screening (Lipid Panel) 08/27/2029 08/27/2024 Pneumococcal Vaccine: 50+ Years Completed 11/24/2021, 08/14/2015, 09/22/2013, Additional history exists RSV Immunization Adult Patients Completed 03/14/2023 Zoster Vaccines Completed 04/27/2024, 07/16, 07/25/2014 Influenza Vaccine Completed 12/13/2024, , 02/01/2023, Additional history exists HIB Vaccines Aged Out No longer eligi ble based on patient's age to complete this topic HPV Vaccines Aged Out No longer eligi ble based on patient's age to complete this topic Hepatitis A Vaccines Aged Out No long er eligible based on patient's age to complete this topic Hepatitis B Vaccines Aged Out No long er eligible based on patient's age to complete this topic IPV Vaccines Aged Out No longer eligi ble based on patient's age to complete this topic MMR Vaccines Aged Out No longer eligi ble based on patient's age to complete this topic Meningococcal ACWY Vaccine Aged Out N o longer eligible based on patient's age to complete this topic Meningococcal B Vaccine Aged Out No l onger eligible based on patient's age to complete this topic RSV Immunization Patients Under 20 months Aged Out No longer eligible based on patient's age to complete this topic Varicella Vaccines Aged Out No longer eligible based on patient's age to complete this topic Medical Devices Implanted Type Area Blending Tank Tender Device Identifier Shelf Expiration Date Model / Serial / Lot Medt-Card Claria Mri Quad Crtd [id number] Implanted:01/15 (Quantity not on file) Cardiac SUPPORT SERVICES COORDINATOR-D ICD [employer] - CARDIAC RHYTH-CRDM CLARIA MRI QUAD CRTD [id number] / [id number] / Procedures Procedure Name Priority Date/Time Associated Diagnosis Comments CARDIAC DEVICE CHECK- REMOTE- MURJ Routine 01/21/2025 11:18 PM EDT CARDIAC DEVICE CHECK- REMOTE- MURJ Routine 12/26/2024 2:13 AM EDT CARDIAC DEVICE CHECK- REMOTE- MURJ Routine 12/01/2024 7:53 PM EDT BASIC METABOLIC PANEL Routine 08/27/2024 9:58 AM EDT Atrial fibrillation, unspecified type (CMS/HCC V24, CMS/HCC V28) Congestive heart failure, unspecified HF chronicity, unspecified heart failure type (CMS/HCC V24, CMS/HCC V28) LIPID PANEL Routine 08/27/2024 9:58 AM EDT Mixed hyperlipidemia from Last 3 Months or Most Recently Relevant to Health Maintenance Results * Cardiac device check - Remote- MURJ (01/21/2025 11:18 PM EDT) Only the most recent of3 resultswithin the time period is included. Date Time Interrogation Session [id number] CV DEVICE CHECK Type Interrogation Session Remote CV DEVICE CHECK Implantable Pulse Generator Blending Tank Tender MDT CV DEVICE CHECK Implantable Pulse Generator Type SUPPORT SERVICES COORDINATOR-D CV DEVICE CHECK Implantable Pulse Generator Model Claria MRI Quad CRTD [id number] CV DEVICE CHECK Implantable Pulse Generator Serial Number [id number] CV DEVICE CHECK Implantable Pulse Generator Implant Date [id number] CV DEVICE CHECK Battery Remaining Longevity 27.0 CV DEVICE CHECK Battery Voltage 2.950 CV D EVICE CHECK Battery APPEALS SPECIALIST Trigger 2.727 CV DEVICE CHECK Battery Status Middle of Service CV DEVICE CHECK Capacitor Charge Time 4.184 CV DEVICE CHECK Andrew Statistic RA Percent Paced 0.00 CV DEVICE CHECK Lead Channel Sensing Intrinsic Amplitude 0.750 CV DEVICE CHECK Lead Channel Impedance Value 475 CV DEVICE CHECK Lead Channel Sensing Intrinsic Amplitude 7.000 CV DEVICE CHECK Lead Channel Setting Sensing Sensitivity 0.30 CV DEVICE CHECK Lead Channel Impedance Value 399 CV DEVICE CHECK Lead Channel Pacing Threshold Amplitude 0.500 CV DEVICE CHECK Lead Channel Pacing Threshold Pulse Width 0.4 CV DEVICE CHECK Lead Channel RV Pacing Threshold Date 2025-01-20 CV DEVICE CHECK Lead Channel Setting Pacing Amplitude 1.500 CV DEVICE CHECK Lead Channel Setting Pacing Pulse Width 0.4 CV DEVICE CHECK Lead Channel Impedance Value 418 CV DEVICE CHECK Lead Channel Pacing Threshold Amplitude 0.750 CV DEVICE CHECK Lead Channel Pacing Threshold Pulse Width 0.4 CV DEVICE CHECK Lead Channel Pacing Threshold Date 2025-01-20 CV DEVICE CHECK Lead Channel Setting Pacing Amplitude 1.250 CV DEVICE CHECK Lead Channel Setting Pacing Pulse Width 0.4 CV DEVICE CHECK Andrew Setting Mode (NBG Code) VVIR CV DEVICE CHECK Ventricular chambers paced during SUPPORT SERVICES COORDINATOR pacing. BiV CV DEVICE CHECK Andrew Setting Lower Rate Limit 70 CV DEVICE CHECK Andrew Setting Maximum Sensor Rate 120 CV DEVICE CHECK SUPPORT SERVICES COORDINATOR LV-RV Delay 0 CV D EVICE CHECK Therapy Statistic Recent Shocks Delivered 0 CV DEVICE CHECK Therapy Statistic Recent Shocks Aborted 0 CV DEVICE CHECK Therapy Statistic Recent ATP Delivered 0 CV DEVICE CHECK RV HV Impedance 58 CV D EVICE CHECK Zone Setting Type Category VF CV DEVICE CHECK Rate 200 CV DEVICE CHECK Therapies ATP During Charging, 35Jx6 CV DEVICE CHECK Zone Setting Status On CV DEVICE CHECK Zone ID 3 CV DEVICE CHECK Zone Setting Type Category VT CV DEVICE CHECK Zone Setting Status Off CV DEVICE CHECK Zone ID 4 CV DEVICE CHECK Zone Setting Type Category VT CV DEVICE CHECK Zone Setting Status Off CV DEVICE CHECK Zone ID 5 CV DEVICE CHECK Zone Setting Type Category VT CV DEVICE CHECK Rate 150 CV DEVICE CHECK Rate 167 CV DEVICE CHECK Zone Setting Status ENABLED CV DEVICE CHECK Zone ID 6 CV DEVICE CHECK Date of Service 2025-03-22 CV DEVICE CHECK Anatomical Region Laterality Modality Device Interroga tion 01/20/2025 3:34 AM EDT Impressions 01/21/2025 12:57 PM EDT Heart Failure Diagnostic: Stable * Heart failure diagnostics assessed through the device * Status: Stable * No overt HF present Narrative Procedure Note Fabian Welsh MD - 01/21/2025 IMPRESSION: Heart Failure Diagnostic: Stable * Heart failure diagnostics assessed through the device * Status: Stable * No overt HF present us Fabian Welsh MD CV IMPLANTABLE CARDIAC DEV ICE PROCEDURES Final Result * Lipid panel (08/27/2024 9:58 AM EDT) Cholesterol Total 112 100 - 199 mg/dL [facility] Triglycerides 64 0 - 149 mg/dL [facility] HDL Cholesterol 43 >39 mg/dL [facility] VLDL Cholesterol Calculated 14 5 - 40 mg/dL [facility] LDL Chol Calc (NIH) 55 0 - 99 mg/dL [facility] 1 Blood Venous blood specimen / Unknown 08/27/2024 9:58 AM EDT 08/27/2024 Narrative [facility] 1 - 08/28/2024 1:06 AM EDT Performed at: 01 - [facility] [id number] Lineman Apprentice: Anabella Claire MD, Phone: [phone] us Beth Garnett GROUND PRODUCTS DIRECTOR LAB BLOOD ORDERABLES Final R esult [facility] 1 * (ABNORMAL) Basic metabolic panel (08/27/2024 9:58 AM EDT) Glucose 157(H) 70 - 99 mg/dL [facility] 1 Blood Urea Nitrogen (BUN) 33(H) 8 - 27 mg/dL [facility] 1 Creatinine 1.52(H) 0.76 - 1.27 mg/dL [facility] 1 eGFR 44(L) >59 mL/min/1.7 3 [facility] 1 BUN/Creatinine Ratio 22 10 - 24 [facility] 1 Sodium 135 134 - 144 mmol/L [facility] 1 Potassium 4.6 3.5 - 5.2 mmol/L [facility] 1 Chloride 99 96 - 106 mmol/L [facility] 1 Carbon Dioxide 18(L) 20 - 29 mmol/L [facility] 1 Calcium 9.1 8.6 - 10.2 mg/dL [facility] 1 Blood Venous blood specimen / Unknown 08/27/2024 9:58 AM EDT 08/27/2024 Narrative [facility] 1 - 08/28/2024 1:06 AM EDT Performed at: 01 - [facility] [address] [id number] Lineman Apprentice: Anabella Claire MD, Phone: [phone] us Beth Garnett GROUND PRODUCTS DIRECTOR LAB BLOOD ORDERABLES Final R esult [facility] 1 from Last 3 Months or Most Recently Relevant to Health Maintenance Insurance * Guarantor: [employer] Account Type Relation to Patient Date of Phone Billing Address Personal/Family Self 1935 [address] [facility] [address] [place] [address] MEDICAID - [place] MEDICARE Care Teams Pilot Boat Operator Relationship Specialty Start Date End Date Milagros Valencia MD [address] [place] [address] PCP - General 03/29/13
--- OUTSIDE RECORDS SUMMARY | 2025-02-06 10:46 | XMS_ITS | Encounter Summary ---
Author Organization [facility] Address [address] [address] Phone Care Team Providers Care Swing Grinder Name Role Phone Milagros Valencia MD Primary Care Provider +1- [phone] Encounter Details Date Type Department Care Team ([facility] Contact Info) Description 01/28/2025 Orders Only [facility] [address] [phone] Chance Saldana MD [address] [address] Stage 3b chronic kidney disease (HCC); Renal stone; Congenital lobulation of kidney; Benign prostatic hyperplasia; Anemia in chronic kidney disease; Atrial fibrillation, not otherwise specified (HCC); Congestive heart failure, not otherwise specified (HCC); 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; Type 2 diabetes mellitus without complication (HCC); Dyslipidemia; Essential hypertension; Hypertension; Localized edema; Obesity, not otherwise specified Social History Tobacco Use Types Packs/Day Years [...] on file documented as of this encounter Plan of Treatment Upcoming Encounters Date Type Department Care Team (Late Contact Info) Description 08/04/2025 9:40 AM EDT [facility] Visit [facility] [address] [address] Chance Saldana MD [address] [address] documented as of this encounter Visit Diagnoses Diagnosis Stage 3b chronic kidney disease (HCC) Renal stone Congenital lobulation of kidney Benign prostatic hyperplasia Anemia in chronic kidney disease Atrial fibrillation, not otherwise specified (HCC) Congestive heart failure, not otherwise specified (HCC) 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 Type 2 diabetes mellitus without complication (HCC) Dyslipidemia Essential hypertension Hypertension Localized edema Obesity, not otherwise specified documented in this encounter Care Teams Swing Grinder Relationship Specialty Start Date End Date Milagros Valencia MD [address] [place], [place] PCP - General 04/27/20 documented as of this encounter
== END 2025-02-06 10:45 | disposition home or self-care (01) ==
LOC: HO.HMCHD 09:32
PROVIDERS: PCP Internal Medicine; Visit Provider Internal Medicine
DX: I12.9 Hypertensive chronic kidney disease with stage 1 through stage 4 chronic kidney disease, or unspecified chronic kidney disease (principal); E11.69 Type 2 diabetes mellitus with other specified complication; E66.9 Obesity, unspecified; E11.22 Type 2 diabetes mellitus with diabetic chronic kidney disease; N18.4 Chronic kidney disease, stage 4 (severe); D64.9 Anemia, unspecified; M17.0 Bilateral primary osteoarthritis of knee; J44.9 Chronic obstructive pulmonary disease, unspecified; I50.9 Heart failure, unspecified; Z51.81 Encounter for therapeutic drug level monitoring

== ENCOUNTER 2025-02-06 10:49 | Outpatient (REF) | payer MEDICARE, MEDICAID, SELFPAY ==
[2025-02-06 13:11] LABS: MANUAL DIFF FLAG NO
--- OUTSIDE RECORDS SUMMARY | 2025-02-06 13:20 | XMS_ITS | Data Portability ---
Author Organization [place] - [facility] Address [address] [place] [id number] Care Team Providers Care Dye Range Feeder Name Role Phone ESTRELLITA STEFANO Primary Care Provider [phone] SIL VAUGHN OTHER Assessment Encounter Date Assessment Date Assessment LastModified by Organization Details LastModified Time 06/18/2020 06/18/2020 Time On Scene with Patient: 00:48:42 [id number] Not available 06/18/2020 14:48:49 05/05/2021 05/05/2021 DDX: Sinusitis doubtful, no sinus pain or fullness, no swelling of face, no complaint of pain over maxillary or frontal sinuses Upper respiratory illness viral likely associated with some dizziness, not all the time. No nystagmus Doubtful for Vertigo at this point, dizziness at times with sitting to standing, not with other positional changes. Not available 05/05/2021 16:26:17 08/28/2021 08/28/2021 Overview/History : 86 year old male known to but new to provider with a history of CAD with pacer/defibrilla tor, COPD, NIDDM, HTN, HLD, CKD GERD, anxiety/depressi on and allergies being seen today for fatigue and weakness since about 08/18 when assistant professor of business started him on the spironolactone. He also states he started taking benedryl around the same time for his watery eyes. Got the second COVID booster on 08/24 and vomited x 1 right after. Since then eating and drinking well. Gets short of breath with ambulation. No cough, no chest pain or wheezing; no feeling of racing heart. Received a call from cardiology 2 days ago stating that ? home monitor m Exam: Very pleasant, joking, non-toxic male in no acute distress. Afebrile, VS all WNL; moist mucus membranes; no adenopathy; S2S2 regular paced on EKG; lung sounds bilat clear all floyd; abd soft, nontender +BS; no edema/ Pt states he feels better already DDx considered, but not limited to: -Afib: considered as possible cause of dysnea, weakness but regular rhythm on EKG; question possiblity of paroxysmal EKG -CHF: considered with exertional dyspnea but not likely due to clear lungs, no edema -Seasonal allergies: possibility also pt was taking benedryl last 2 weeks -Acute COPD exercerbation: considered but recovers with rest, intermittent Work up/Results: EKG paced regular rhythm at 78; no ectopy. Ordered CBCD, BMP and mag Plan/Discussion: -Discussed results of exam -CXR to rule out an pulmonary etiology -CBCD, BMP, mag -To stop Benedryl, start claritin instead -Use AC, don't go outside during hot, humid weather -Has apt with cardiology in 3 days -Def ED precautions discussed Proper Personal Protective Equipment (PPE), including gloves, eye protection and masks were donned and doffed appropriately and all equipment cleaned using approved technique with germicidal disposable wipes prior to and after care of this patient according to [facility]'s infection prevention protocols. tita Not available 08/28/2021 11:56:16 10/11/2021 10/11/2021 Time On Scene with Patient: 00:33:42 86 year old male known to but new to provider with a history of CAD with pacer/defibrilla tor, COPD, CHF, NIDDM, HTN, HLD, CKD GERD, anxiety/depressi on. Patient complains of dyspnea on exertion, lack of appetite, and productive cough x 1 week. Admits to not taking his Symbicort daily. Patient with history of CHF. He denies any swelling to extremity or any weight gain. He pinedo actually lost 4 lbs within the last week or two. At home Covid test done approximately one week ago with negative finding. Prescribed Mucinex by PCP today which he is yet to take. Exam: Very pleasant, joking, non-toxic male in no acute distress. Afebrile, VS all WNL; conversing with staff and answering all questions appropriately. EOMI, oropharynx clear with moist mucous membranes. Respiration even and nonlabored, bilateral breath sounds with expiratory wheeze. Heart RRR. No swelling to extremity. Congested cough noted with office visit. Test: Chest x-ray ordered. DDx: pneumonia, COPD exacerbation,bro nchitis, CHF exacerbation. Plans: -Patient with history of CHF and COPD with adventitious lung sound. Chest x-ray ordered for further evaluation. Expiratory wheeze on auscultation. Encouraged to take Symbicort daily, it is not a rescue inhaler, but instead maintenance. The patient is advised to make an appt with PCP in 3-5 days to discuss ongoing symptoms/ further management. The patient is also advised to go to the ED immediately for any worsening symptoms. The patient understood and agreed with this plan. The patient was given discharge instructions and all questions were answered prior to team departure. Not available 10/11/2021 19:59:02 Plan of Treatment Reminders Order Date Submit Date Provider Last Modified By Organization Details Last Modified Time Details Appointments None recorded. Lab CBC w/ auto diff - Collected by [facility] 2021 022 [facility] (Centralized Electronic Ordering - All Locations), Patient Can Go To The Location Of Their Choice, 12:30:07 BMP, serum or plasma 2021 022 [facility] (Centralized Electronic Ordering - All Locations), Patient Can Go To The Location Of Their Choice, 13:01:27 magnesium , serum or plasma 2021 022 [facility] (Centralized Electronic Ordering - All Locations), Patient Can Go To The Location Of Their Choice, 2 13:01:36 unlisted lab - covid-19 (novel coronavir us) [facility]), Patient Can Go To The Location Of Their Choice, [id number] 10:35:10 Referral None recorded. Procedures None recorded. Surgeries None recorded. Imaging XR, chest, 2 view - [facility] 022 [facility] ([facility] [address], [place], [address], 2 11:06:19 XR, chest, 2 view 2021 022 [facility] [address], [place], [address], 2 12:35:35 XR, chest, 2 view 2020 021 [facility] ([facility]), [address], [place], [address], 1 16:12:20 Medication Orders prednison e 10 mg tablet 2021 022 [facility] Not available 2 20:50:02 prednison e 20 mg tablet 2021 022 [facility]/Pharmacy #[id number], [phone] [place], [address], 2 19:59:54 loratadin e 10 mg tablet 2021 022 [facility]/Pharmacy #[id number], [phone] [place], [address], 2 11:25:34 amoxicill in 875 mg tablet 2021 022 [facility]/Pharmacy #[id number], [phone] [place], [address], 2 10:45:38 Patient TargetsNo targets recorded. Patient Instructions Encounter Date Encounter Id Patient Instructions Last Modified By Organization Details Last Modified Time 06/18/2020 [id number] chf education Not available 0 06/18/2020 15:07:39 learning about copd and how to prevent lung infections Not available 06/18/2020 15:07:41 [facility] symptoms of increased shortness of breath at rest and particularly with activity. Your vital signs were stable this visit. There are some course lung sounds to your right lung field. We ordered a home chest xray and [facility] WILL CALL YOU AND ARRANGE A CHEST XRAY. A COPY OF THE XRAY RESULT IS BEING SENT TO YOUR DOCTORS. Follow up with your primary care doctor regarding possible referral to a rn child who may determine that you are a candidate for potential home oxygen as needed. As discussed, for now, please utilize your Albuterol Nebulizer treatments per prescription guidelines for relief from Shortness of breath symptoms. Your walking oxygen saturization level was 94% and your pulse was 73 after your nebulizer treatment. PLEASE USE YOUR NEBULIZER EVERY 6 HOURS FOR NOW OR AT LEAST 3 X DAILY UNTIL YOU FOLLOW WITH PCP. Thank you for your visit with [facility] today. We cannot always find the exact cause of your symptoms during your initial visit. Please follow up with your primary care provider or specialist within 12-24 hours to be rechecked or seek medical attention if your symptoms do not go away or get worse. If you develop any new or worsening symptoms and need after hours care, please go to nearest ER and/or call 911. If you have additional concerns or develop a change in your condition between 8am-10pm, please call [facility] at [phone] to help navigate your care. Not available 06/18/2020 14:39:40 08/28/2021 [id number] -You were seen today for fatigue, exertiona dyspnea -Your EKG did not show any irregular rhythm or rate -We ordered an CXR to check for any respiratory cause -Stop the diphenhydramine; we ordered Loratadine 1 tab daily instead -We will send all the results to both your PCP and assistant professor of business -Follow up with your PCP and assistant professor of business as scheduled -Seek emergency attention if any increased shortness of breath, chest pain or fever tita Not available 08/28/2021 11:28:42 10/11/2021 [id number] Inhaler Instructions Before use, you need to prime the inhaler: Take the cap off the mouthpiece and put the inhaler in the spacer Shake the inhaler for 5 seconds Hold the inhaler upright with 1 finger on the top of the canister, the thumb on the bottom of the inhaler, and your other hand holding the spacer Express a large breath Close lips around spacer Press down on the canister After you press down on the canister, breathe (or have your child breathe in) deeply and slowly and hold your breath for 10 seconds Take out of your mouth and slowly exhale If you were instructed to take 2 puffs of the inhaler, wait one minute before you give the second puff. Shake the inhaler again before the second puff. If the inhaler is a steroid medicine (also called a g lucocorticoid or c orticosteroid ), rinse out your mouth, gargle, and spit out the water Cleaning: If you use the inhaler every day, you need to clean it at least once a week. If you use less often, clean the inhaler when you see powder in or around the hole. To clean an inhaler: Remove the canister and cap from the mouthpiece. Do not wash the canister or put the canister under water. Run warm water through the mouthpiece for 30 to 60 seconds Shake the water off of the mouthpiece and let it air dry Clean the spacer every 1-2 weeks. First, remove the inhaler from the spacer. Wash the spacer with warm water and dishwashing soap, but do NOT rinse it. Then let it air dry. Leaving the spacer a little soapy after cleaning actually helps it work better. Thank you for your visit with [facility] today. We cannot always find the exact cause of your symptoms during your initial visit. Please follow up with your primary care provider or specialist to be rechecked or seek medical attention if your symptoms do not go away or get worse. If you develop any new or worsening symptoms and need after hours care, please go to nearest ER and/or call 911. If you have additional concerns or develop a change in your condition between 8am-10pm, please call [facility] at [phone] to help navigate your care. Acute Bronchitis Instructions BASIC INFORMATION Acute bronchitis is swelling and irritation in the air passages of your lungs. This irritation may cause you to cough or have other breathing problems. Acute bronchitis often starts because of another viral illness, such as a cold or the flu. The illness spreads from your nose and throat to your windpipe and airways. Bronchitis is often called a chest cold. Acute bronchitis lasts about 2 weeks and is usually not a serious illness. Most cases of bronchitis DO NOT require antibiotics. INSTRUCTIONS Medicines: Ibuprofen or acetaminophen: These medicines help lower a fever and treat aches. Refer to the bottles for proper dosing based on age and weight. Use as needed. Do not take either of these medicines for more than 3 days in a row. Prolonged use of Ibuprofen can hurt your kidney and stomach. Prolonged use of Tylenol can injure your liver. Cough medicine: Wmiv-rhq-klwjzkz (OTC) medicine helps loosen mucus in your lungs and make it easier to cough up. OTC cough medicine should NOT be used in children under age 3. Inhalers: You may need an inhaler to help you breathe easier and cough less. Inhalers help to relax the airways An inhaler gives medicine in a mist form so that you can breathe it into your lungs. If you were given an inhaler, take 2 puffs, four times per day for 2 days. After that, just use as needed for increased coughing, wheezing or tightness in chest. Steroid medicine: You may have been given prednisone or another steroid medication which helps open your air passages so you can breathe easier. Antibiotics: In most cases, antibiotics are not necessary for bronchitis. However, if your provider did prescribe these for you, please complete the entire course. You should also ask your pharmacist for a good omwc-fow-kohibln probiotic to take while you are on the antibiotic to help prevent antibiotic induced diarrhea. A good probiotic should have two species of live, active cultures. How to use an inhaler: 1) Shake the inhaler well to make sure you get the correct amount of medicine per puff. Remove the cover from your inhaler's mouthpiece. 2) Exhale as much air from your lungs as you can. Put the mouthpiece in your mouth, past your front teeth and rest it on the top of your tongue. Do not block the mouthpiece opening with your tongue. 3) Breathe in through your mouth at a slow and steady rate. As you do this, press the inhaler to release the puff of medicine. When your lungs are full, hold your breath for 10 seconds. Then breathe out slowly through puckered lips or through your nose. 4) If you need to take more puffs, wait at least 1 minute between each puff. 5) Using a spacer / air chamber ensures that you get the maximum amount of medicine from the inhaler. 6) Rinse your mouth with water after you use the inhaler. This may keep you from getting a mouth infection or irritation. 7) Follow the instructions that come with your inhaler to clean it. Self Care: 1) Do not smoke or allow others to smoke around you. Please call the [employer] Quit Line at to help in smoking cessation. Avoid chemicals, fumes, and dust. 2) Stay well hydrated 3) Seek care immediately if you: - develop a fever - develop a rash - become increasingly short of breath or you do not begin to improve 3-5 days (it may take 10 days for complete improvement) - cough up blood - have chest pain unrelated to coughing 4) Make appointment to follow up with you doctor within one week or sooner if directed by your [facility] provider. If you develop any new or worsening symptoms and need after hours care, please go to nearest ER and/or call 911. If you have additional concerns or develop a change in your condition between 8am-10pm, please [facility] at [phone] to help navigate your care. Inhaler Instructions Before use, you need to prime the inhaler: Take the cap off the mouthpiece and put the inhaler in the spacer Shake the inhaler for 5 seconds Hold the inhaler upright with 1 finger on the top of the canister, the thumb on the bottom of the inhaler, and your other hand holding the spacer Express a large breath Close lips around spacer Press down on the canister After you press down on the canister, breathe (or have your child breathe in) deeply and slowly and hold your breath for 10 seconds Take out of your mouth and slowly exhale If you were instructed to take 2 puffs of the inhaler, wait one minute before you give the second puff. Shake the inhaler again before the second puff. If the inhaler is a steroid medicine (also called a g lucocorticoid or c orticosteroid ), rinse out your mouth, gargle, and spit out the water Cleaning: If you use the inhaler every day, you need to clean it at least once a week. If you use less often, clean the inhaler when you see powder in or around the hole. To clean an inhaler: Remove the canister and cap from the mouthpiece. Do not wash the canister or put the canister under water. Run warm water through the mouthpiece for 30 to 60 seconds Shake the water off of the mouthpiece and let it air dry Clean the spacer every 1-2 weeks. First, remove the inhaler from the spacer. Wash the spacer with warm water and dishwashing soap, but do NOT rinse it. Then let it air dry. Leaving the spacer a little soapy after cleaning actually helps it work better. [email or web address] Not available 10/11/2021 18:03:24 Reason for Referral None Reported. Results Created Date Observation Date Name Description Value Unit Range Abnormal Flag Note LastModifiedBy Organization Detail LastModifiedTime 05/05/1905/08/20212018 NOVEL CORON AVIRU S, PCR covid-19, PCR DETECT ED abnormal Refer ence range : NOT DETEC ESDRAS (NOTE ) = A Detec esdras resul t indic ates that the patie nts' speci men was posit marti for SARS- CoV-2 RNA. Test Metho d: Nucle ic Acid Ampli ficat ion Test inclu ding rever se trans cript ion polym erase chain react ion (RT-P CR) and trans cript ion media esdras ampli ficat ion (TMA) . The test metho d meets the [place] Cente rs for Disea se Contr ol and preve ntion (CDC) pre depar ture and arriv al requi remen t for viral test for COVID -19 dated 2020. Testi ng requi remen ts for juan jolley august santizo e with time. The patie nt is respo nsibl e for deter minin g the test requi remen ts for each natio n while they are juan jolley. = This test has been autho rized by the FDA under an Emerg ency Use Autho rizat ion (EUA) for use by autho rized labor atori es. Pleas e revie w the Fact Sheet s and FDA autho rized label ing avail able for healt h care provi ders and patie nts using the follo wing websi lulu: https ://tamia w.que stdia gnost ics.c om/ho me/Co vid-1 9/HCP / [facility] LDT/f act-s heet. html https ://tamia w.que stdia gnost ics.c om/ho me/Co vid-1 9/Pat ients / [facility] LDT/f act-s heet. html = This test has been autho rized by the FDA under an Emerg ency Use Autho rizat ion (EUA) for use by autho rized labor atori es. Due to the curre nt publi c healt h emerg ency, [facility] ostic s is accep drew coleman es from appro priat e clini maria g sourc es colle cted using wide varie ty of swabs and trans port media for COVID -19. Not detec esdras test resul ts deriv ed from speci mens recei zara in non- comme rcial ly manuf actur ed viral colle ction kits or those not yet autho rized by FDA for COVID -19 testi ng shoul d be cauti ously evalu ated and take extra preca ution s such as addit ional clini maria g monit oring , inclu ding colle ction of an addit ional speci men. Addit ional infor regino lopez about COVID -19 can be found at the [employer] ostic s websi te: www.idemama uestD An [facility] [employer] .[employer]/ Covid 19. Test Perfo rmed by: [facility] ostic s [facility], [address], [place], [place]. [address] . Labor atory Direc tor: Matt duque MD. Not Available [facility] (Centralized Electronic Ordering - All Locations) Patient Can Go To The Location Of Their Choice, [id number] 05/08/2021 20:28:05 08/29/1908/28/2021 COMPL ETE CBC WITH DIFF WBC 8.5 K/mm3 (4.0-1 1.0) Not Available [facility] (Centralized Electronic Ordering - All Locations) Patient Can Go To The Location Of Their Choice, [id number] 08/28/2021 12:30:07 08/29/192022 COMPL ETE CBC WITH DIFF RBC 4.06 M/mm3 (4.70- 6.10) low Not Available [facility] (Centralized Electronic Ordering - All Locations) Patient Can Go To The Location Of Their Choice, 08/28/2021 12:30:08/29/1908/28/2021 COMPL ETE CBC WITH DIFF HGB 12.3 gm/dL (13.7- 17.1) low Not Available [facility] (Centralized Electronic Ordering - All Locations) Patient Can Go To The Location Of Their Choice, 08/28/2021 12:30:08/29/1908/28/2021 COMPL ETE CBC WITH DIFF HCT 37.7 % (40.5- 50.0) low Not Available [facility] (Centralized Electronic Ordering - All Locations) Patient Can Go To The Location Of Their Choice, 08/28/2021 12:30:08/29/1908/28/2021 COMPL ETE CBC WITH DIFF MCV 92.9 fL (80.0- 94.0) Not Available [facility] (Centralized Electronic Ordering - All Locations) Patient Can Go To The Location Of Their Choice, 08/28/2021 12:30:08/29/1908/28/2021 COMPL ETE CBC WITH DIFF MCH 30.3 pg (27.0- 34.0) Not Available [facility] (Centralized Electronic Ordering - All Locations) Patient Can Go To The Location Of Their Choice, 08/28/2021 12:30:08/29/1908/28/2021 COMPL ETE CBC WITH DIFF MCHC 32.6 g/dL (33.0- 37.0) low Not Available [facility] (Centralized Electronic Ordering - All Locations) Patient Can Go To The Location Of Their Choice, 08/28/2021 12:30:08/29/1908/28/2021 COMPL ETE CBC WITH DIFF plt 230 K/mm3 (150-4 60) Not Available [facility] (Centralized Electronic Ordering - All Locations) Patient Can Go To The Location Of Their Choice, 08/28/2021 12:30:08/29/1908/28/2021 COMPL ETE CBC WITH DIFF RDW-SD 45.9 fL (<47.0 ) Not Available [facility] (Centralized Electronic Ordering - All Locations) Patient Can Go To The Location Of Their Choice, 08/28/2021 12:30:08/29/1908/28/2021 COMPL ETE CBC WITH DIFF MPV 11.3 fL (9.4-1 2.4) Not Available [facility] (Centralized Electronic Ordering - All Locations) Patient Can Go To The Location Of Their Choice, 08/28/2021 12:30:08/29/19 22 08/28/2021 COMPL ETE CBC WITH DIFF automated NRBC 0.0 #/100 _WBC' s Not Available [facility] (Centralized Electronic Ordering - All Locations) Patient Can Go To The Location Of Their Choice, 08/28/2021 12:30:08/29/1908/28/2021 COMPL ETE CBC WITH DIFF abs. NRBC 0.0 K/mm3 Not Available [facility] (Centralized Electronic Ordering - All Locations) Patient Can Go To The Location Of Their Choice, 08/28/2021 12:30:08/29/1908/28/2021 COMPL ETE CBC WITH DIFF neut # 6.2 K/mm3 (1.3-7 .0) Not Available [facility] (Centralized Electronic Ordering - All Locations) Patient Can Go To The Location Of Their Choice, 08/28/2021 12:30:08/29/1908/28/2021 COMPL ETE CBC WITH DIFF lymph # 1.3 K/mm3 (0.8-3 .1) Not Available [facility] (Centralized Electronic Ordering - All Locations) Patient Can Go To The Location Of Their Choice, 08/28/2021 12:30:08/29/1908/28/2021 COMPL ETE CBC WITH DIFF mono# 0.7 K/mm3 (0.4-1 .3) Not Available [facility] (Centralized Electronic Ordering - All Locations) Patient Can Go To The Location Of Their Choice, 08/28/2021 12:30:08/29/1908/28/2021 COMPL ETE CBC WITH DIFF eo # 0.1 K/mm3 (0.0-0 .4) Not Available [facility] (Centralized Electronic Ordering - All Locations) Patient Can Go To The Location Of Their Choice, 08/28/2021 12:30:08/29/1908/28/2021 COMPL ETE CBC WITH DIFF baso # 0.0 K/mm3 (0.0-0 .1) Not Available [facility] (Centralized Electronic Ordering - All Locations) Patient Can Go To The Location Of Their Choice, 08/28/2021 12:30:08/29/1908/28/2021 COMPL ETE CBC WITH DIFF abs. imm gran 0.0 K/mm3 Not Available [facility] ([facility] Order[facility] - All Locations) Patient Can Go To The Location Of Their Choice, 08/28/2021 12:30:08/29/1908/28/2021 COMPL ETE CBC WITH DIFF neut 73.2 % (44-76 ) Not Available [facility] (Centralized Electronic Ordering - All Locations) Patient Can Go To The Location Of Their Choice, 08/28/2021 12:30:08/29/1908/28/2021 COMPL ETE CBC WITH DIFF lymph 15.6 % (15-43 ) Not Available [facility] (Centralized Electronic Ordering - All Locations) Patient Can Go To The Location Of Their Choice, 08/28/2021 12:30:08/29/1908/28/2021 COMPL ETE CBC WITH DIFF monocyte 8.6 % (4.5-1 0.5) Not Available [facility] (Centralized Electronic Ordering - All Locations) Patient Can Go To The Location Of Their Choice, 08/28/2021 12:30:08/29/1908/28/2021 COMPL ETE CBC WITH DIFF eo 1.7 % (0-6) Not Available [facility] (Centralized Electronic Ordering - All Locations) Patient Can Go To The Location Of Their Choice, 08/28/2021 12:30:08/29/1908/28/2021 COMPL ETE CBC WITH DIFF baso 0.5 % (0-2) Not Available [facility] (Centralized Electronic Ordering - All Locations) Patient Can Go To The Location Of Their Choice, 08/28/2021 12:30:08/29/1908/28/2021 COMPL ETE CBC WITH DIFF imm gran 0.4 % Not Available [facility] (Centralized Electronic Ordering - All Locations) Patient Can Go To The Location Of Their Choice, 08/28/2021 12:30:07 08/29/1908/28/2021 BASIC METAB OLIC PANEL glucose 179 mg/dL (70-99 ) high Not Available [facility] (Centralized Electronic Ordering - All Locations) Patient Can Go To The Location Of Their Choice, 08/28/2021 13:01:08/29/1908/28/2021 BASIC METAB OLIC PANEL BUN 40 mg/dL (8-23) high Not Available [facility] (Centralized Electronic Ordering - All Locations) Patient Can Go To The Location Of Their Choice, 08/28/2021 13:01:08/29/1908/28/2021 BASIC METAB OLIC PANEL creatinine 2.5 mg/dL (0.7-1 .2) high Not Available [facility] (Centralized Electronic Ordering - All Locations) Patient Can Go To The Location Of Their Choice, 08/28/2021 13:01:27 08/29/1908/28/2021 BASIC METAB OLIC PANEL sodium 136 mmol/ L (133-1 45) Not Available [facility] (Centralized Electronic Ordering - All Locations) Patient Can Go To The Location Of Their Choice, 08/28/2021 13:01:27 08/29/1908/28/2021 BASIC METAB OLIC PANEL potassium 4.9 mmol/ L (3.6-5 .2) Not Available [facility] (Centralized Electronic Ordering - All Locations) Patient Can Go To The Location Of Their Choice, 08/28/2021 13:01:08/29/1908/28/2021 BASIC METAB OLIC PANEL chloride 97 mmol/ L (98-10 7) low Not Available [facility] (Centralized Electronic Ordering - All Locations) Patient Can Go To The Location Of Their Choice, 08/28/2021 13:01:27 08/29/1908/28/2021 BASIC METAB OLIC PANEL bicarbonate 25 mmol/ L (22-29 ) Not Available [facility] (Centralized Electronic Ordering - All Locations) Patient Can Go To The Location Of Their Choice, 08/28/2021 13:01:27 08/29/19 22 08/28/2021 BASIC METAB OLIC PANEL anion gap 14 (4-17) Not Available [facility] (Centralized Electronic Ordering - All Locations) Patient Can Go To The Location Of Their Choice, 08/28/2021 13:01:27 08/29/19 22 08/28/2021 BASIC METAB OLIC PANEL calcium 9.3 mg/dL (8.6-1 0.5) Not Available [facility] (Centralized Electronic Ordering - All Locations) Patient Can Go To The Location Of Their Choice, 08/28/2021 13:01:27 08/29/19 22 08/28/2021 BASIC METAB OLIC PANEL estimated GFR creatinine 25 mL/mi n/1.7 3_M2 Creat inine based estim ated glome rular filtr ation (eGFR ) in adult s is calcu lated using the Natio nal Kidne y Found ation recom erik d 2020 CKD-E PI equat ion. Estim ates GFR from serum creat inine , age and sex. Not Available [facility] (Centralized Electronic Ordering - All Locations) Patient Can Go To The Location Of Their Choice, 08/28/2021 13:01:27 08/29/1908/28/2021 MAGNE SIUM magnesium 2.1 mg/dL (1.6-2 .3) Not Available [facility] (Centralized Electronic Ordering - All Locations) Patient Can Go To The Location Of Their Choice, 08/28/2021 13:01:36 06/20/19 21 06/19/2020 XR, chest , 2 view XRAY CHEST 2 VIEW FINDIN GS: The heart is mildly enlarg ed. There is mild pulmon christen venous conges tion. No effusi on is presen t. No focal pneumo deyanira is seen. CONCLU MAG: Mild conges tion. ELECTR ONICAL LY SIGNED BY ONEL MORALES M.D. 06/20/19 4:07:4 3 PM EST. XRAY CHEST 2 VIEW Result s: The heart is mildly enlarg ed. There is mild pulmon christen venous conges tion. No effusi on is presen t. No focal pneumo deyanira is seen. Conclu mag: Mild conges tion. Electr onical ly signed by ONEL MORALES M.D. 06/20/19 4:07:4 3 PM EST. [email or web address] [facility] ([facility] [employer]) [address] , [place], [address], 06/20/2020 18:15:44 08/29/19 elect rocar diogr am No observ ation record ed. [facility] Not Available 08/28 15:21:16 08/30/19 22 08/29/2021 XR, chest , 2 view XRAY CHEST 2 VIEW Compar jorge: 06/20/19 FINDIN GS: The lungs are clear. The heart is enlarg ed in size. No acute osseou s abnorm ality. Left-s ided pacema ker. No pneumo deyanira or CHF. CONCLU MAG: No acute cardio pulmon christen diseas e proces s. ELECTR ONICAL LY SIGNED BY EUNICE MEJIA M.D. 12:20: 40 PM EDT. XRAY CHEST 2 VIEW Compar jorge: 06/20/19 Result s: The lungs are clear. The heart is enlarg ed in size. No acute osseou s abnorm ality. Left-s ided pacema ker. No pneumo deyanira or CHF. Conclu mag: No acute cardio pulmon christen diseas e proces s. Electr onical ly signed by EUNICE MEJIA M.D. 12:20: 40 PM EDT. [email or web address] [facility] [address] [facility] [address], [place], [address], 08/30/2021 15:14:11 10/13/19 22 10/12/2021 XR, chest , 2 view XRAY CHEST 2 VIEW FINDIN GS: The lungs are free of active pulmon christen diseas e. There is no mass, infilt rate, consol idatio n, or effusi on. There is no adenop athy, the medias tinum is normal . The osseou s struct ures are normal . There is a pacema ker in positi on. CONCLU MAG: Normal chest no change from ELECTR ONICAL LY SIGNED BY BIN SOLIMAN M.D. 11:00: 58 AM EDT. XRAY CHEST 2 VIEW Result s: The lungs are free of active pulmon christen diseas e. There is no mass, infilt rate, consol idatio n, or effusi on. There is no adenop athy, the medias tinum is normal . The osseou s struct ures are normal . There is a pacema ker in positi on. Conclu mag: Normal chest no change from Electr onical ly signed by BIN SOLIMAN M.D. 11:00: 58 AM EDT. [email or web address] [employer] [address], [place], [address], 10/13/2021 15:24:43 Result Notes Documentation Provider Name and Address Organization Details Recorded Time Xr, Chest, 2 View : XRAY CHEST 2 VIEW FINDINGS: The heart is mildly enlarged. There is mild pulmonary venous congestion. No effusion is present. No focal pneumonia is seen. CONCLUSION: Mild congestion. ELECTRONICALLY SIGNED BY ONEL CHRISTIANSON M.D. 06/19/2020 4:07:43 PM EST. XRAY CHEST 2 VIEW Results: The heart is mildly enlarged. There is mild pulmonary venous congestion. No effusion is present. No focal pneumonia is seen. Conclusion: Mild congestion. Electronically signed by ONEL CHRISTIANSON M.D. 06/19/2020 4:07:43 PM EST. TRISTEN LAGUNAS [address] [place] [address], [address], [place] [facility] 06/20/2020 18:15:44 Xr, Chest, 2 View : XRAY CHEST 2 VIEW Comparison: 06/19/2020 FINDINGS: The lungs are clear. The heart is enlarged in size. No acute osseous abnormality. Left-sided pacemaker. No pneumonia or CHF. CONCLUSION: No acute cardiopulmonary disease process. ELECTRONICALLY SIGNED BY EUNICE MEJIA M.D. 08/29/2021 12:20:40 PM EDT. XRAY CHEST 2 VIEW Comparison: 06/19/2020 Results: The lungs are clear. The heart is enlarged in size. No acute osseous abnormality. Left-sided pacemaker. No pneumonia or CHF. Conclusion: No acute cardiopulmonary disease process. Electronically signed by EUNICE MEJIA M.D. 08/29/2021 12:20:40 PM EDT. Divya Diaz judith, [place] [facility] 08/30/2021 15:14:11 Xr, Chest, 2 View : XRAY CHEST 2 VIEW FINDINGS: The lungs are free of active pulmonary disease. There is no mass, infiltrate, consolidation, or effusion. There is no adenopathy, the mediastinum is normal. The osseous structures are normal. There is a pacemaker in position. CONCLUSION: Normal chest no change from 08/29/2021 ELECTRONICALLY SIGNED BY BIN SOLIMAN M.D. 10/12/2021 11:00:58 AM EDT. XRAY CHEST 2 VIEW Results: The lungs are free of active pulmonary disease. There is no mass, infiltrate, consolidation, or effusion. There is no adenopathy, the mediastinum is normal. The osseous structures are normal. There is a pacemaker in position. Conclusion: Normal chest no change from 08/29/2021 Electronically signed by BIN SOLIMAN M.D. 10/12/2021 11:00:58 AM EDT. Melissa Zuleyma wong, [place] [facility] 10/13/2021 15:24:43 Problems Name Problem SNOMED Code Status Onset Date Resolution Date Notes Provider Name and Address Organization Details Recorded Time Congestive heart failure 10093006 Active 2020 Arlette Hutchins NP [address] [place], [address], [place] [facility] 18:54:09 Left bundle branch block 92325124 Active 2020 Arlette Hutchins NP [address] [place], [address], [place] [facility] 18:54:16 Atrial fibrillation 38113523 Active 2020 Arlette Hutchins NP [address] [place], [address], [place] [facility] 18:54:39 Diabetes mellitus 73076297 Active 2020 Arlette Hutchins, LARISSA [address], [facility] [place], [address], [place] [facility] 18:54:56 Hyperlipidemi a 98221715 Active 2020 Arlette Hutchins NP [address], [facility] [place], [address], [place] [facility] 18:55:04 Hypertensive disorder 91211159 Active 2020 Arlette Hutchins, LARISSA [address], [place], [address], [place] [facility] 18:55:13 Problem Notes None recorded. Procedures Surgical History Date Name Laterality Status Provider Name and Address Organization Details Recorded Time 08/29/19 Venipuncture - completed Abbie Nelson NP [address] [place], [address], [place] [facility] 09/06/2021 12:51:36 08/29/19 ECG Interpretation - completed Abbie Nelson NP [address], [place], [address], [place] [facility] 09/06/2021 12:55:22 Removal of anal fissure completed Arlette Hutchins NP [address], [place], [address], [place] [facility] 06/18/2020 14:10:59 cardiac pacemaker procedure completed Abbie Nelson NP [address], [place], [address], [place] [facility] 08/28/2021 10:57:06 Imaging Results None recorded. Procedure Notes None recorded. Medical Equipment None Reported. Allergies No known drug allergies Medications Name Sig Start Date Stop Date Status Note LastModified by Organization Details LastModified Time prednisone 10 mg tablet 20 mg administe red on scene. Time administe red:1809 2021 active Not Available Not Available Not Avai lable carvedilol 12.5 mg tablet TAKE 1 TABLET BY MOUTH TWICE A DAY WITH MEALS active Not Available Not Available No t Available albuterol sulfate 2.5 mg/3 mL (0.083 %) solution for nebulizatio n USE 3 ML NEB EVERY 6 HOURS NEEDED FOR WHEEZING active Not Available Not Available No t Available atorvastati n 10 mg tablet TAKE 1 TABLET BY MOUTH EVERY DAY active Not Available Not Available No t Available metoprolol succinate ER 50 mg tablet,exte nded release 24 hr TAKE 1 TABLET BY MOUTH EVERY DAY 08/28 completed Not Available Not Available Not Available Stacy Charlton 28 gauge DX: E11.9 USE ONCE PER DAY active Not Available Not Available No t Available lisinopril 20 mg tablet TAKE 1 TABLET BY MOUTH EVERY DAY active Not Available Not Available No t Available prednisone 20 mg tablet TAKE 1 TABLET EVERY DAY BY ORAL ROUTE DIRECTED FOR 4 DAYS. active Not Available Not Available No t Available cyanocobala min (vit B-12) 1,000 mcg tablet TAKE 1 TABLET BY MOUTH EVERY DAY active Not Available Not Available No t Available amlodipine 2.5 mg tablet TAKE 1 TABLET BY MOUTH EVERY DAY 08/28 completed Not Available Not Available Not Available amlodipine 5 mg tablet TAKE 1 TABLET BY MOUTH EVERY DAY 08/28 completed Not Available Not Available Not Available tramadol 50 mg tablet TAKE 1 TABLET BY MOUTH EVERY 6 HOURS NEEDED FOR SEVERE PAIN active Not Available Not Available No t Available spironolact one 25 mg tablet TAKE 1 TABLET BY MOUTH EVERY DAY active Not Available Not Available No t Available amoxicillin 875 mg tablet Take 1 tablet every 12 hours by oral route as directed for 7 days. 08/28 completed Not Available Not Available Not Available doxazosin 8 mg tablet TAKE 1 TABLET (8 MG TOTAL) BY MOUTH IN THE MORNING. active Not Available Not Available No t Available magnesium oxide 400 mg (241.3 mg magnesium) tablet TAKE 1 TABLET BY MOUTH EVERY DAY FOR 14 DAYS NEEDED FOR LEG CRAMPS active Not Available Not Available No t Available glipizide ER 2.5 mg tablet, extended release 24 hr TAKE 1 TABLET BY MOUTH EVERY DAY 06/18 completed Not Available Not Available Not Available erythromyci n 5 mg/gram (0.5 %) eye ointment APPLY 1/4 INCH RIBBON TO EACH EYE AT BEDTIME 08/28 completed Not Available Not Available Not Available metformin 1,000 mg tablet TAKE 1 TABLET BY MOUTH EVERY DAY active Not Available Not Available No t Available sertraline 25 mg tablet TAKE 1 TABLET BY MOUTH EVERY DAY FOR ANXIETY active Not Available Not Available No t Available omeprazole 20 mg capsule,del ayed release TAKE 1 CAPSULE BY MOUTH EVERY DAY active Not Available Not Available No t Available oxycodone-a cetaminophe n 2.5 mg-325 mg tablet 05/05 completed Not Available Not Available Not Available furosemide 20 mg tablet TAKE 1 TABLET BY MOUTH TWICE A DAY active Not Available Not Available No t Available pioglitazon e 30 mg tablet TAKE 1 TABLET BY MOUTH EVERY DAY 08/28 completed Not Available Not Available Not Available lisinopril 40 mg tablet TAKE 1 TABLET BY MOUTH EVERY DAY 06/18 completed Not Available Not Available Not Available finasteride 5 mg tablet TAKE 1 TABLET BY MOUTH EVERY DAY active Not Available Not Available No t Available loratadine 10 mg tablet TAKE 1 TABLET BY MOUTH EVERY DAY active Not Available Not Available No t Available diazepam 5 mg tablet TAKE 1/2 TAB BY MOUTH TWICE DAILY NEEDED FOR ANXIETY active Not Available Not Available No t Available Ventolin HFA 90 mcg/actuati on aerosol inhaler active Not Available Not Available Not Available Actos 06/18 completed Not Available Not Available Not Available Januvia 50 mg tablet TAKE 1 TABLET BY MOUTH EVERY DAY active Not Available Not Available No t Available Symbicort 160 mcg-4.5 mcg/actuati on HFA aerosol inhaler INHALE 2 PUFFS TWICE A DAY active Not Available Not Available No t Available FreeStyle Lite Meter kit USE DAILY active Not Available Not Available No t Available FreeStyle Lite Strips CHECK BLOOD SUGAR ONCE DAILY. active Not Available Not Available No t Available diclofenac 1.5 % topical drops APPLY 30 DROPS TO EACH KNEE 3 TIMES A DAY active Not Available Not Available No t Available Eliquis 2.5 mg tablet TAKE 1 TABLET BY MOUTH TWICE A DAY active Not Available Not Available No t Available Jardiance 10 mg tablet TAKE 1 TABLET BY MOUTH EVERY MORNING active Not Available Not Available No t Available Entresto 24 mg-26 mg tablet TAKE 1 TABLET BY MOUTH TWICE A DAY active Not Available Not Available No t Available Vitals Date Recorded Respiratory rate Body temperature Oxygen saturation Oxygen saturation in Arterial blood by Pulse oximetry Heart rate Systolic And Diastolic Provider Name and Address Organization Details Last Updated DateTime 2 20 /min 98 [degF] 98 % 98 % 89 /min 120/78 mm[Hg] Not Available [facility] 2 15:56:47 Date Recorded Body temperature Oxygen saturation Oxygen saturation in Arterial blood by Pulse oximetry Heart rate Respiratory rate Systolic And Diastolic Provider Name and Address Organization Details Last Updated DateTime 1 97.9 [degF] 94 % 94 % 75 /min 20 /min 110/60 mm[Hg] Not Available [facility] 1 14:08:19 Date Recorded Oxygen saturation Oxygen saturation in Arterial blood by Pulse oximetry Body temperature Heart rate Respiratory rate Systolic And Diastolic Provider Name and Address Organization Details Last Updated DateTime 2 94 % 94 % 97.2 [degF] 82 /min 18 /min 122/66 mm[Hg] Not Available [facility] 2 10:48:47 Date Recorded Respiratory rate Body temperature Oxygen saturation Oxygen saturation in Arterial blood by Pulse oximetry Heart rate Systolic And Diastolic Provider Name and Address Organization Details Last Updated DateTime 2 18 /min 98.3 [degF] 96 % 96 % 85 /min 110/50 mm[Hg] Not Available [facility] 2 18:25:51 Social History Question Answer Notes LastModified by Organizat ion Details LastModified Time Tobacco Smoking Status Former Smoker Arlette Hutchins NP [facility] [place], [address], [place] [facility] 06/18/2020 14:08:20 Do You Have An Advance Directive? No Information not available 06/18/2020 What Is Your Code Status? Full Code Information not available 06/18/2020 Within The Past 12 Months, Has It Happened That The Food You Bought Just Didn't Last And You Didn't Have Money To Get More. No Information not available 06/18/2020 Within The Past 12 Months, Have You Worried That Your Food Would Run Out Before You Got Money To Buy More. No Information not available 06/18/2020 Fall Risk: Do You Feel Unsteady When Standing Or Walking? No Has VNA 1 X Weekly To Check Vital Signs. Had PT In The Home, No Longer Has Service. Information not available 06/18/2020 We Know That How And When People Interact With Friends And Family Can Be Very Different From Person To Person. How Often Do You Have The Opportunity To See Or Talk To People That You Care About And Feel Close To? (Ex: Talking To Friends On The Phone Or Visiting Friends Or Family Or Going To Shinto Or Club Meetings) 1 Or 2 Times Per Week Information not available 06/18/2020 Excessive Alcohol Or Drug Use No Information not available 06/18/2020 We Know From Many Of Our Patients That Covering All Of Their Costs Can Be Difficult At Times. This Can Cause Stress And Impact Health. In The Past Year, Have You Been Unable To Get Any Of The Following When It Was Really Needed? No Information not available 06/18/2020 What Is Your Housing Situation Today? I Have Housing Information not available 06/18/2020 Would You Like Help Connecting To Resources? None Information not available 06/18/2020 How Much Tobacco Do You Smoke? 3+ PPD Information not available 06/18/2020 How Many Years Have You Smoked Tobacco? 45 Information not available 06/18/2020 Sex: Unknown Functional Status None recorded. Mental Status None recorded. Family History Relationship Description Onset Age of this Age Resolved Age Notes LastModified by Organization Details LastModified Time Mother Malignant neoplasm of stomach Not available 2020 14:08:02 Notes:unknown history of fat her/passed at 35 year sof age. Medical History Condition Response Diabetes Y Coronary Artery Disease Y Stroke N Depression N COPD Y Asthma N High Cholesterol Y Pulmonary Embolism N Hypertension Y Kidney Disease N Past Encounters Encounter ID Performer Location Encounter Start Date Encounter Closed Date Diagnosis/Indication Diagnosis SNOMED-CT Code Diagnosis ICD10 Code Diagnosis IMO Codes Diagnosis Note [id number] Arlette Hutchins NP [facility] - HOME [address] [facility] [address] 06/18/2020 14:00:16 06/19/2020 12:27:02 Dyspnea on exertion 10724700 R06.09 Dyspnea at rest 38911232 7 R06.00 Overview/H istory: Patient is an alert 85 year old male who presents this visit with complaint of dyspnea at rest/dyspn ea on exertion that has worsened x 2 days. Review of [facility] reveals a recent inpatient admission 05/13/2020 where patient diagnosis included CHF and AFIB exacerbati on. His medication s were appropriat driss adjusted. Patient BUN and Cr baseline 34 and 1.7 respective ly. H&H 05/14/2020 9.2 and 28. Most recent telehealth visit with PCP was 05/18/2020. Patient and VNA log 05/20/2020 to 06/17/2020 demonstrat e consistenc y with glucose levels ranging from 127-151 and weight log consistent during same time frame ranging from 234-236. Exam: Afebrile 97.9. HRR 75, S1, S2. Trachea midline, no JVD distention . LSCTA bilaterall y with exception of right lower lung field where there are find crackles on auscultati on. No work of breathing at rest, speaking in full sentences at rest. During ambulation without benefit of nebulizer, patient pulse 104, desat to 91% - patient did demonstrat e increased WOB and utilized accessory muscles; he was reminded to utilize pursed lip breathing technique. Moist mucous membranes, no lymphadeno chrissy. Abdomen soft, rounded, + bowel sounds x 4 quadrants. No CVA tenderness . No LE/periphe ral edema noted, + pedal pulses. DDx considered , but not limited to:COPD exacerbati on likely given improvemen t s/p nebulizer treatmentP neumonia considered , cannot rule out, right lower lung field coarseUnst able AFIB considered , however HRR this visitCHF exacerbati on considered , however no LE edema Work up/Results : Exam Plan/Discu ssion:1. CXR ordered with [employer] to rule out CHF/PNA process. Attached providers to report. Treat if necessary. 2. Encouraged patient to utilize Albuterol Nebulizer treatments as ordered by PCP.3. Discussed AFIB, CHF and COPD exacerbati on symptoms; stable vs. acute. Discussed importance of nebulizer use when experienci ng exacerbati on of dyspnea, particular ly at rest. Provided COPD/preve nt lung infection handout.4. Patient to follow with PCP/discus s potential follow up with pulmonolog ist as he has not been under the care of pulmonolog y for several years. Discussed possible need for home 02 in the future and COPD process. Patient is able to reiterate acute s/s to report to ED/call 911. Proper Personal Protective Equipment (PPE), including gloves, eye protection , N95 mask, gown, and shoe covers were donned and doffed abhishek naqvi and all equipment cleaned using approved technique with germicidal disposable wipes prior to and after care of this patient according to [facility]'s infection prevention protocols. In order to obtain further informatio n and compare any laboratory results/va lues, I have accessed old patient records. This informatio n was pertinent in my medical decision making today. Congestive heart failure 57561154 I50.9 [id number] TRISTEN [facility]berg [facility] [address] [place] [address] 05/05/2021 12:51:23 05/07/2021 21:44:35 Acute right otitis media 972614190 H66.91 some sinus congestion , alternatin g with runny nose, and right ear pain x past 2 days.Bilat eral TM are opaque with right TM 1/3 erythemato us. will start amoxxicili n 875 mg BID 7 days follow up if any changes or worsening of symptoms. Acute uppe r respiratory infection 73336141 J06.9 some nasal congestion worse in the morning, no F/C no cough. advised to use humidifier at night mucinex plain 1200 mg BID Exposure t o communicable disease 399080796 Z20.822 history of positive rapid test april 22, 2021 Pt had vaccinatio ns plus booster though and he stayed at home and seemed to do fine, his first negative rapid test was yesterday. Would like to have accurate PCR to be sure he is not positive. advised if positive we will call him, he will not hear from us if negative. [id number] Abbie Nelson NP [facility] [address] [place] [address] 08/28/2021 10:40:54 08/31/2021 10:13:27 Fatigue 04949314 R53.83 Dyspnea on exertion 6084 5006 R06.09 Seasonal allergy 6871994 04 J30.2 [id number] October LARISSA Prieto [facility] [address] [facility] [place] [address] 10/11/2021 17:58:55 10/13/2021 15:34:56 Acute exacerbation of chronic obstructive pulmonary disease 764213383 J44.1 Congestive heart failure 55125736 I50.9 Health Concerns Section Related Observation LastModified by Organization Detai ls LastModified Time None Recorded Concern Status LastModified by Organization Details LastModified Time None Recorded Advance Directives Directive N: Payers Insurance Date Sequence Insurance Name Policy Number Policy Lerner Covered Member ID Lerner Member ID Guarantor Name 06/18/2020 1 *SELF PAY* Rom Rocael [id number] Rom Cote 10/11/2021 1 [place] B[place] [employer] Rom Ortez McQuade [id number] Rom Rocael 07/18/2020 2 [place] [facility] Rom Rocael [id number] Rom Rocael 10/20/2021 2 [place] [facility] Rom Rocael [id number] Rom Rocael Notes Date Note Type Note Provider Name and Address Organization Details Recorded Time 06/18/2020 text/html Patient is an 85 year old alert male who is new to and new to this provider. When I wake up in the morning, I can't breath. Patient. Patient reports this as a new symptom. Patient denies use of home albuterol nebulizer Patient home RN that comes 1 x weekly noted ambulatory oxygen desaturation. Alleviating factors are rest, exacerbating factor is ambulation/activit y. Patient medical history significant for COPD, AFIB, CHF, LBBBB. Patient also has hx of hyperlipidemia, HTN, diabetes. Arlette Hutchins, LARISSA [address] [place] [address], [address], [place] [facility] 06/18/2020 18:55:29 05/05/2021 text/html established pt with he sts he has 3 sx, Dizzy when he gets up , hot flashes at times, weak. He has had this for past couple of days. he has some ear pain on the right, no cough. He sts it is hard to breath through the nose. very congested, he has not been using the humidifier at night. He is typically worse in the morning no chills. No fever. No headache, no nausea or vomiting, no balance disturbance, no complaints of visual disturbance. has good appetite and is taking fluids. He went to the corner store this morning and felt ok, but when he got home his ear was hurting and he began to feel bad.. No focal weakness, no peripheral paresthesias.2021 had positive COVID Rapid test until yesterday when he came up negative. He currently feels normal. Sts his symptoms are typically in the morning. TRISTEN Greenberg [address], [place], [address], [place] [facility] 05/05/2021 16:31:59 08/28/2021 text/html 86 year old male known to but new to provider with a history of CAD with pacer/defibrillato r, COPD, NIDDM, HTN, HLD, CKD GERD, anxiety/depression and allergies being seen today for fatigue and weakness since about 08/18 when assistant professor of business started him on the spironolactone. He also states he started taking benedryl around the same time for his watery eyes. Got the second COVID booster on 08/24 and vomited x 1 right after. Since then eating and drinking well. Gets short of breath with ambulation. No cough, no chest pain or wheezing; no feeling of racing heart. Received a call from cardiology 2 days ago stating that ? home monitor maybe captured an event. No fever or chills. Hasn't been sleeping well either. BS have been 100-200 Abbie Nelson NP [address], [place], [address], [place] [facility] 09/06/2021 12:55:40 10/11/2021 text/html General HPI Template - DHReported by Patient 86 year old male known to but new to provider with a history of CAD with pacer/defibrillato r, COPD, CHF, NIDDM, HTN, HLD, CKD GERD, anxiety/depression . Patient complains of dyspnea on exertion, lack of appetite, and productive cough x 1 week. Admits to not taking his Symbicort daily. Patient with history of CHF. He denies any swelling to extremity or any weight gain. He pinedo actually lost 4 lbs within the last week or two. Khadra Prieto NP [address], [place], [address], [place] [facility] 10/11/2021 20:00:13
[2025-02-06 13:28] LABS: Hematocrit 30.1 % (42.0-52.0); Hemoglobin 9.3 g/dl (14.0-18.0); Imm Gran Abs Auto 0.04 X10*3/uL (0.00-0.03); Imm Gran Pct Auto 0.3 % (0.0-0.4); Lymphocytes Absolute Auto 1.3 X10*3/uL (1.2-4.9); Mean Corpuscular HGB Conc 30.9 g/dl (31.0-36.0); Mean Corpuscular Hemoglobin 29.1 pg (27.0-33.0); Mean Corpuscular Volume 94.1 fL (80.0-98.0); NRBC Abs Auto 0.000 X10*3/uL (0.0-0.012); NRBC Pct Auto 0.0 /100WBC (0.0-0.2); Platelet Count 296 X10*3/uL (160-400); Red Blood Count 3.20 X10*6/uL (4.60-5.80); White Blood Count 11.7 X10*3/uL (4.8-10.8)
[2025-02-06 13:49] LABS: Alanine Aminotransferase 16 U/L (0-40); Albumin Level 4.3 g/dL (3.5-5.0); Alkaline Phosphatase 77 U/L (39-117); Anion Gap 10 (12-20); Aspartate Amino Transferase 20 U/L (5-37); Blood Urea Nitrogen 32 mg/dL (9-16); Calcium 9.0 mg/dL (8.4-10.2); Carbon Dioxide 26 mmol/L (22-29); Chloride 105 mmol/L (96-108); Estimated Glomerular Filt Rate 43; Magnesium 2.2 mg/dL (1.6-2.6); Potassium 4.7 mmol/L (3.3-5.1); Sodium 136 mmol/L (135-145); Total Protein 7.3 g/dL (6.5-8.0)
[2025-02-06 13:58] LABS: Microalbum/Creatinine Ratio Ur 99.3 ug/mg cr (<30)
[2025-02-10 10:03] LABS: Alcohol, Ethyl Urine Screen NEGATIVE
== END 2025-02-06 10:50 | disposition home or self-care (01) ==
LOC: HO.10HDL 10:49
PROVIDERS: Visit Provider Internal Medicine
DX: I12.9 Hypertensive chronic kidney disease with stage 1 through stage 4 chronic kidney disease, or unspecified chronic kidney disease (principal); N18.4 Chronic kidney disease, stage 4 (severe); E66.9 Obesity, unspecified; D64.9 Anemia, unspecified; E11.22 Type 2 diabetes mellitus with diabetic chronic kidney disease; Z51.81 Encounter for therapeutic drug level monitoring
CPT/HCPCS: 80053; 80307; 82043; 82570; 83036; 83735; 85025; 99212

== ENCOUNTER 2025-02-10 08:52 | Outpatient (REF) | payer MEDICARE, MEDICAID, SELFPAY ==
--- OUTSIDE RECORDS SUMMARY | 2025-02-10 09:35 | XMS_ITS | Encounter Summary ---
Author Organization [facility] Address [address] [place] [address] Phone Care Team Providers Care Silver Wrapper Name Role Phone Milagros Valencia MD Primary Care Provider +1- [phone] Reason for Visit * Reason Comments Med Refill Encounter Details Date Type Department Care Team (Late Contact Info) Description 05/31/2021 Refill [facility] [address] [place] [address] Chance Saldana MD [address] [address] Social History Tobacco Use Types [...] Visit [facility] [address] [facility] [address] [place] [address] Chance Saldana MD [address] [facility] [address] [place] [address] documented as of this encounter Visit Diagnoses Not on filedocumented in this encounter Care Teams Silver Wrapper Relationship Specialty Start Date End Date Milagros Valencia MD [address], [place] PCP - General 04/27/20 documented as of this encounter
--- OUTSIDE RECORDS SUMMARY | 2025-02-10 09:36 | XMS_ITS | Data Portability ---
Author Organization [place] [facility] Address [address] [place] [address] Care Team Providers Care Picker Packer Name Role Phone ESTRELLITA STEFANO Primary Care Provider SIL VAUGHN OTHER Assessment Encounter Date Assessment [...] to standing, not with other positional changes. [email or web address] Not available 05/05/2021 16:26:17 08/28/2021 08/28/2021 Overview/History : 86 year old male known to but new to provider with a history of CAD with pacer/defibrilla tor, COPD, NIDDM, HTN, HLD, CKD GERD, anxiety/depressi on and allergies being seen today for fatigue and weakness since about 08/18 when laborer bituminous paving started him on the spironolactone. He also [...] after care of this patient [facility]. tita Not available [...] questions were answered prior to team departure. [email or web address] Not available 10/11/2021 19:59:02 Plan of Treatment Reminders Order Date Submit Date Provider Last Modified By Organization Details Last Modified Time Details Appointments None recorded. Lab CBC w/ auto diff - Collected by [facility] 2021 022 LINDSEY [facility] (Centralized Electronic Ordering [...] covid-19 (novel coronavir us) PCR [email or web address] ([facility] - All Locations), Patient Can Go To The Location Of Their Choice, [id number] 10:35:10 Referral None recorded. Procedures None recorded. Surgeries None recorded. Imaging XR, chest, 2 view - [facility] 022 [facility] Office ([facility]), [address], [place], [address], 2 11:06:19 XR, chest, 2 view 2021 022 [facility] [address], [place], [address], 2 12:35:35 XR, chest, 2 view 2020 021 [facility] ([facility]), [address], [place], [address], 1 16:12:20 Medication Orders prednison e 10 mg tablet [address] [facility] Not available 2 20:50:02 prednison e 20 mg tablet 2021 022 [facility]armacy #1130, [phone] [place], [address], 2 19:59:54 loratadin e 10 mg tablet 2021 022 [facility]arm[facility] #1130, [phone] [place], [address], 2 11:25:34 amoxicill in 875 mg tablet 2021 022 [facility]Pharmacy #1130, [phone] [place], [address], 2 10:45:38 Patient TargetsNo targets recorded. Patient Instructions Encounter Date Encounter Id Patient Instructions Last Modified By Organization Details Last Modified Time 06/18/2020 [id number] chf education Not available 0 06/18/2020 15:07:39 learning about copd and how to prevent lung infections Not available 06/18/2020 15:07:41 You were seen by [facility] today for symptoms of increased shortness of breath at rest and particularly with activity. Your vital signs were stable this visit. There are some course lung sounds to your right lung field. We ordered a home chest xray and [email or web address] WILL CALL YOU AND ARRANGE A CHEST XRAY. A COPY OF THE XRAY RESULT IS BEING SENT TO YOUR DOCTORS. Follow up with your primary care doctor regarding possible referral to a plastics process hand who may determine that you are a [...] PCP. Thank you for your visit with [facility] today. We cannot always find the exact [...] in your condition between 8am-10pm, please call [facility] at [phone] to help navigate your care. Not available 06/18/2020 14:39:40 08/28/2021 [id number] -You were seen today for fatigue, exertiona dyspnea -Your EKG did not show any irregular rhythm or rate -We ordered an CXR to check for any respiratory cause -Stop the diphenhydramine; we ordered Loratadine 1 tab daily instead -We will send all the results to both your PCP and laborer bituminous paving -Follow up with your PCP and laborer bituminous paving as scheduled -Seek emergency attention if any increased shortness of breath, chest pain or fever tita Not available 08/28/2021 11:28:42 10/11/2021 [id number] Inhaler Instructions Before use, you need to [...] better. Thank you for your visit with [facility] today. We cannot always find the exact [...] in your condition between 8am-10pm, please call [facility] at [phone] to help navigate your care. Acute Bronchitis [...] Tylenol can injure your liver. Cough medicine: Sded-cqd-vmbkiad (OTC) medicine helps loosen mucus in your [...] also ask your pharmacist for a good jdrq-cyu-yknlflb probiotic to take while you are on [...] to smoke around you. Please call the [employer] Quit Line at to help in smoking [...] in your condition between 8am-10pm, please call [facility] at [phone] to help navigate your care. Inhaler Instructions [...] after cleaning actually helps it work better. [email or web address] Not available 10/11/2021 18:03:24 Reason for Referral [...] nt publi c healt h emerg ency, [employer] [facility] is accep drew coleman es [...] COVID -19 can be found at the [employer] websi te: www.[employer] .Collarity/ Covid 19. Test Perfo rmed by: [employer] [facility], [address], [place], [place]. [address] . Labor atory Direc tor: Matt duque MD. Not Available [facility] (Centralized Electronic Ordering - All Locations) Patient Can Go To The Location Of Their Choice, [id number] 05/08/2021 20:28:05 08/29/1908/28/2021 COMPL ETE CBC WITH DIFF WBC 8.5 K/mm3 (4.0-1 1.0) Not Available [facility] (Centralized Electronic Ordering - All Locations) Patient Can Go To The Location Of Their Choice, [id number] 08/28/2021 12:30:07 08/29/192022 COMPL ETE CBC WITH [...] MORALES M.D. 06/20/19 4:07:4 3 PM EST. [email or web address] [facility]) [address] , [place], [address], 06/20/2020 18:15:44 08/29/19 elect rocar diogr am No observ ation record ed. [facility] Not Available 08/28 15:21:16 08/30/19 22 08/29/2021 [...] EUNICE MEJIA M.D. 12:20: 40 PM EDT. [facility] [address], [place], [address], 08/30/2021 15:14:11 10/13/19 22 10/12/2021 XR, chest [...] BIN SOLIMAN M.D. 11:00: 58 AM EDT. [email or web address] [employer] [address], [place], [address], 10/13/2021 15:24:43 Result Notes Documentation Provider Name [...] M.D. 06/19/2020 4:07:43 PM EST. TRISTEN LAGUNAS [address] [place] [address], [address], [place] [facility] 06/20/2020 18:15:44 Xr, Chest, [...] Organization Details Recorded Time Congestive heart failure 91122596 Active 2020 Arlette Hutchins NP [address] [place], [address], [place] [facility] 18:54:09 Left bundle branch block 16811459 Active 2020 Arlette Hutchins NP [address] [place], [address], [place] [facility] 18:54:16 Atrial fibrillation 00777289 Active 2020 Arlette Hutchins NP [address] [place], [address], [place] [facility] 18:54:39 Diabetes mellitus 86851200 Active 2020 Arlette Hutchins, LARISSA [address], [facility] [place], [address], [place] [facility] 18:54:56 Hyperlipidemi a 19385822 Active 2020 Arlette Hutchins NP [address], [facility] [place], [address], [place] [facility] 18:55:04 Hypertensive disorder 71966377 Active 2020 Arlette Hutchins, LARISSA [address], [facility] [place], [address], [place] [facility] 18:55:13 Problem Notes None recorded. Procedures Surgical History Date Name Laterality Status Provider Name and Address Organization Details Recorded Time 08/29/19 Venipuncture - completed Abbie Nelson NP [address] [place], [address], [place] [facility] 09/06/2021 12:51:36 08/29/19 ECG Interpretation - completed Abbie Nelson NP [address], [place], [address], [place] [facility] 09/06/2021 12:55:22 Removal of anal fissure completed Arlette Hutchins NP [address], [place], [address], [place] [facility] 06/18/2020 14:10:59 cardiac pacemaker procedure completed Abbie Nelson NP [address], [place], [address], [place] [facility] 08/28/2021 10:57:06 Imaging Results [...] /min 20 /min 110/60 mm[Hg] Not Available [facility] 1 14:08:19 Date Recorded Oxygen saturation Oxygen saturation in Arterial blood by Pulse oximetry Body temperature Heart rate Respiratory rate Systolic And Diastolic Provider Name and Address Organization Details Last Updated DateTime 2 94 % 94 % 97.2 [degF] 82 /min 18 /min 122/66 mm[Hg] Not Available [facility] 2 10:48:47 Date Recorded Respiratory rate Body temperature Oxygen saturation Oxygen saturation in Arterial blood by Pulse oximetry Heart rate Systolic And Diastolic Provider Name and Address Organization Details Last Updated DateTime 2 18 /min 98.3 [degF] 96 % 96 % 85 /min 110/50 mm[Hg] Not Available [facility] 2 18:25:51 Social History Question Answer Notes LastModified by Organizat ion Details LastModified Time Tobacco Smoking Status Former Smoker Arlette Hutchins NP [facility] [place], [address], [place] [facility] 06/18/2020 14:08:20 Do You [...] Visiting Friends Or Family Or Going To Zoroastrian Or Club Meetings) 1 Or 2 Times [...] year sof age. Medical History Condition Response Coronary Artery Disease Y Depression N COPD Y Diabetes Y Stroke N Asthma N High Cholesterol Y Pulmonary Embolism N Hypertension Y Kidney Disease N Past Encounters Encounter ID Performer Location Encounter Start Date Encounter Closed Date Diagnosis/Indication Diagnosis SNOMED-CT Code Diagnosis ICD10 Code Diagnosis IMO Codes Diagnosis Note [id number] Arlette Hutchins NP [facility] [address] [place] [address] 06/18/2020 14:00:16 06/19/2020 12:27:02 Dyspnea on exertion 24518158 R06.09 Dyspnea at rest 63194625 7 R06.00 Overview/H istory: Patient is an [...] after care of this patient according to [facility]'s infection prevention protocols. In order to obtain further informatio n and compare any laboratory results/va lues, I have accessed old patient records. This informatio n was pertinent in my medical decision making today. Congestive heart failure 29615504 I50.9 [id number] TRISTEN Greenberg [facility] [address] [place] [address] 05/05/2021 12:51:23 05/07/2021 21:44:35 Acute right otitis media 587449333 H66.91 some sinus congestion , alternatin g with runny nose, and right ear pain x past 2 days.Bilat eral TM are opaque with right TM 1/3 erythemato us. will start amoxxicili n 875 mg BID 7 days follow up if any changes or worsening of symptoms. Acute uppe r respiratory infection 61470138 J06.9 some nasal congestion worse in the morning, no F/C no cough. advised to use humidifier at night mucinex plain 1200 mg BID Exposure t o communicable disease 820584424 Z20.822 history of positive rapid test april 22, 2021 Pt had vaccinatio ns plus booster though and he stayed at home and seemed to do fine, his first negative rapid test was yesterday. Would like to have accurate PCR to be sure he is not positive. advised if positive we will call him, he will not hear from us if negative. [id number] Abbie Nelson NP [facility] [address] [place] [address] 08/28/2021 10:40:54 08/31/2021 10:13:27 Fatigue 46749022 R53.83 Dyspnea on exertion 6084 5006 R06.09 Seasonal allergy 2245472 04 J30.2 [id number] October LARISSA Prieto [facility] [address] [facility] [place] [address] 10/11/2021 17:58:55 10/13/2021 15:34:56 Acute exacerbation of chronic obstructive pulmonary disease 613467083 J44.1 Congestive heart failure 09862305 I50.9 Health Concerns Section Related Observation LastModified by Organization Detai ls LastModified Time None Recorded Concern Status LastModified by Organization Details LastModified Time None Recorded Advance Directives Directive N: Payers Insurance Date Sequence Insurance Name Policy Number Policy Lerner Covered Member ID Lerner Member ID Guarantor Name 06/18/2020 1 *SELF PAY* Rom Rocael [id number] Rom Cote 10/11/2021 1 [place] [employer] Rom Ortez McQuade [id number] Rom Rocael 07/18/2020 2 [place] [facility] Rom Rocael [id number] Rom Rocael 10/20/2021 2 [place] [facility] Rom Rocael [id number] Rom Rocael Notes Date Note Type Note [...] of hyperlipidemia, HTN, diabetes. Arlette Hutchins, LARISSA [address] [place] [address], [address], [place] [facility] 06/18/2020 18:55:29 05/05/2021 text/html established pt [...] the morning. TRISTEN Greenberg [address], [place], [address], [place] [facility] 05/05/2021 16:31:59 08/28/2021 text/html 86 year old male known to but new to provider with a history of CAD with pacer/defibrillato r, COPD, NIDDM, HTN, HLD, CKD GERD, anxiety/depression and allergies being seen today for fatigue and weakness since about 08/18 when laborer bituminous paving started him on the spironolactone. He also [...] 100-200 Abbie Nelson NP [address], [place], [address], [place] [facility] 09/06/2021 12:55:40 10/11/2021 text/html [...] two. Khadra Prieto NP [address], [place], [address], [place] [facility] 10/11/2021 20:00:13
--- OUTSIDE RECORDS SUMMARY | 2025-02-10 09:36 | XMS_ITS | Clinical Summary ---
Author Organization [facility] Address [address] [facility] [address] [place] [address] Phone Care Team Providers Care Forms Examiner Name Role Phone Milagros Valencia MD Primary Care Provider +1- [phone] Allergies No known active allergies Medications albuterol [...] Office Visit [facility] [address] [address] Chance Saldana MD Stage 3b chronic kidney [...] Orders Only [facility][1] [address] [address] Chance Saldana MD Stage 3b chronic kidney [...] Office Visit [facility][1] [address] [address] Chance Saldana MD [address] [id number] Health Maintenance Due Date Last Done Comments [...] Medicaid [place] Care Teams Forms Examiner Relationship Specialty Start Date End Date Milagros Valencia MD [address], [place] PCP - General 04/27/20
--- OUTSIDE RECORDS SUMMARY | 2025-02-10 09:37 | XMS_ITS | Clinical Summary ---
Author Organization [address] [place] [address] [place] [phone] Phone Care Team Providers Care Enrober Name Role Phone Milagros Valencia MD Primary Care Provider [phone]- [phone] Allergies No known active allergies Medications albuterol 2.5 mg /3 mL (0.083 %) nebulizer solution Take 1 Vial by nebulization every 6 hours as needed. Active atorvastatin (LIPITOR) 10 mg tablet Take 1 Tab by mouth daily. Active blood-glucose meter (FREESTYLE LITE METER [facility]) Active blood-glucose meter kit by Does not apply route. Active budesonide/form oterol fumarate (SYMBICORT INHL) Inhale 2 Puffs into the lungs 2 times daily. Active CYANOCOBALAMIN, VITAMIN B-12, ORAL Take 1 Tablet by [...] (two) times a day. 180 tablet 1 5 Active carvediloL (COREG) 6.25 mg tablet Take 1 tablet (6.25 mg total) by mouth 2 (two) times a day with meals. 180 tablet 1 5 Active furosemide (LASIX) 20 mg tablet Take 1 tablet (20 mg total) by mouth if needed (For leg edema). 30 tablet 5 Active Entresto 24-26 mg per tablet TAKE 1 TABLET BY MOUTH TWICE A DAY 180 tablet 1 5 Active Active Problems Problem Noted Date Diagnosed Date Diabetes mellitus ([facility] V24, [facility] V28) Hyperlipidemia 01/31/2024 Overview (01/31/2024): Last [...] lightheadedness or dizziness. Congestive heart failure (CHF) ([facility] V24, [facility] V28) 01/31/2024 Overview (01/31/2024): Last Assessment [...] Description 01/21/2025 11:20 PM EDT Ancillary Procedure [facility] [address] [place] [address] 12/26/2024 2:15 AM EDT Ancillary Procedure [facility] [address] [place] [address] 12/01/2024 7:55 PM EDT Ancillary Procedure [facility] [address] [place] [address] from Last 3 Months Immunizations Immunization Administration Dates Next Due Pfizer SARS-CoV-2 COVID-19, mRNA, LNP-S, preservative free 05/23/2020,05/02/2020,05/02/2019 Surgical History Surgery Date Site/Laterality Comments COLONOSCOPY PROCEDURE: HISTORICAL COLONOSCOPY CATARACT EXTRACTION PROCEDURE: HISTORICAL CATARACT REMOVAL OTHER SURGICAL HISTORY PROCEDURE: HISTORY OTHER; COMMENT: Anoplasty Medical History Medical History Date Comments Anal fissure DX:Anal fissure Anxiety DX:Anxiety Atrial fibrillation (CMS/HCC V24, CMS/HCC V28) DX:Atrial fibrillation (HCC) BPH (benign prostatic hyperplasia) DX:BPH (benign prostatic hyperplasia) Congestive heart failure (CH F) ([facility] V24, [facility] V28) DX:Congestive heart failure (CHF) (HCC) Diabetes mellitus ([facility] V 24, [facility] V28) DX:Diabetes mellitus (HCC) Emphysema lung ([facility] V24, [facility] V28) DX:Emphysema lung (HCC) Hyperlipidemia DX:Hyperlipidemi a Hypertension DX:Hypertension LBBB (left bundle branch block) DX:LBBB (left bundle branch block) Nephrolithiasis DX:Nephrolithias is Obesity DX:Obesity Osteoarthritis DX:Osteoarthriti s Renal cyst DX:Renal cyst CKD (chronic kidney disease) COPD exacerbation ([facility] V 24, [facility] V28) Family History Medical History Relation Name [...] Description 03/18/2025 9:30 AM EST Ancillary Procedure [facility] [address] [place] [address] 04/24/2025 11:20 AM EST Office Visit [facility] [address] [place] [phone] Navin Melgoza MD [address] [place] [address] [place] [phone] Health Maintenance Due Date Last Done Comments [...] this topic Medical Devices Implanted Type Area Massage Therapist Device Identifier Shelf Expiration Date Model / Serial / Lot Medt-Card Mauricio Maher Quad Crtd [id number] Implanted:01/15 (Quantity not on file) Cardiac COMMERCIAL SUBCONTRACTOR-D ICD [employer] - CARDIAC RHYTH-CRDM MAURICIO MRI QUAD CRTD [id number] / [id number] / Procedures Procedure Name Priority Date/Time Associated [...] period is included. Date Time Interrogation Session [id number] CV DEVICE CHECK Type Interrogation Session Remote CV DEVICE CHECK Implantable Pulse Generator Massage Therapist MDT CV DEVICE CHECK Implantable Pulse Generator Type COMMERCIAL SUBCONTRACTOR-D CV DEVICE CHECK Implantable Pulse Generator Model Mauricio MRI Quad CRTD [id number] CV DEVICE CHECK Implantable Pulse Generator Serial Number [id number] CV DEVICE CHECK Implantable Pulse Generator Implant Date [id number] CV DEVICE CHECK Battery Remaining Longevity 27.0 CV DEVICE CHECK Battery Voltage 2.950 CV D EVICE CHECK Battery HAND POLISHER Trigger 2.727 CV DEVICE CHECK Battery Status [...] CV DEVICE CHECK Ventricular chambers paced during COMMERCIAL SUBCONTRACTOR pacing. BiV CV DEVICE CHECK Andrew Setting Lower Rate Limit 70 CV DEVICE CHECK Andrew Setting Maximum Sensor Rate 120 CV DEVICE CHECK COMMERCIAL SUBCONTRACTOR LV-RV Delay 0 CV D EVICE CHECK [...] AM EDT Performed at: 01 - [facility] [address] [id number] Rn Immunology: Anabella Claire MD, Phone: [phone] us Beth Garnett [facility] BLOOD ORDERABLES Final R esult [facility] [...] AM EDT Performed at: 01 - [facility] [address] [id number] Rn Immunology: Anabella Claire MD, Phone: [phone] us Beth Garnett [facility] BLOOD ORDERABLES Final R esult [facility] 1 from Last 3 Months or Most Recently Relevant to Health Maintenance Insurance * Guarantor: Rom [employer] Account Type Relation to Patient Date of Phone Billing Address Personal/Family Self 1935 [address] [place] [address] MEDICAID - [place] MEDICARE Care Teams Enrober Relationship Specialty Start Date End Date Milagros Valencia MD [address] [place] [address] PCP - General 03/29/13
[2025-02-10 13:47] LABS: Iron 315 mcg/dL (45-160); Percent Iron Saturation 80 % (15-50); Total Iron Binding Capacity 396 mcg/dL (228-428); Unsaturated Iron Binding 81 ug/dL
[2025-02-10 14:27] LABS: Folate 10.1 ng/mL (> or = 4.0); Vitamin B12 1494 pg/mL (200-900)
== END 2025-02-10 08:53 | disposition home or self-care (01) ==
LOC: HO.HKASLDS 08:52
PROVIDERS: PCP Internal Medicine; Visit Provider Internal Medicine
DX: D64.9 Anemia, unspecified (principal)
CPT/HCPCS: 36415; 82607; 82746; 83540